=== PATIENT | male | born 1935 | race Caucasian/White ===

== ENCOUNTER 2019-02-21 11:27 | Inpatient (IN) | payer MEDICARE ==
[2019-02-21] MEDS ORDERED: FAMOTIDINE 20 MG/2 ML VIAL IV STA (11:56)
[2019-02-21] MEDS ORDERED: SODIUM CHLORIDE 0.9% 1,000 ML IV STA (11:56)
[2019-02-21] MEDS ORDERED: SODIUM CHLORIDE 0.9% 500 ML 500 ML IV STA (11:56)
--- NOTE | 2019-02-21 12:07 | ED ---
General Adult HPI - General Chief complaint: Fall Stated complaint: GI Bleed Time Seen by Provider: 02/21/19 11:27 Source: patient, EMS, RN notes reviewed, old records reviewed Mode of arrival: EMS Limitations: no limitations - History of Present Illness Initial comments: this 83-year-old male history of iron deficiency anemia who uses a walker at home he states he was trying to the bathroom when he felt very weak and went down. He denies any injury but felt very weak in had to crawl on the floor. He's been having black colored stools for past 3 days he did have some bright red blood he vomited up he is not sure when exactly he was brought in by EMS. He did have a large amount of black stool. He's not sure if he is on iron right now. He denies any Pepto-BismolHe was noted be very pale per paramedics. He was still having black stool oozing out in route to. He denies any overt abdominal pain he states he has some discomfort last night he did take medication for he does state taking Motrin again but only one or 2 per day for the past week or so. He denies any prior history of GI bleeding. he does say he's had decreased oral intake over last several days. No overt loss of consciousness is no palpitations. No other modifying factors at this time - Related Data Home Medications Medication Instructions Recorded Confirmed amLODIPine [Norvasc] 5 mg PO HS 06/27/15 02/21/19 Metoprolol Tartrate [Lopressor] 25 mg PO DAILY 07/14/15 02/21/19 Ibuprofen [Motrin Ib] 800 mg PO Q6H PRN 02/21/19 02/21/19 Lisinopril [Zestril] 10 mg PO DAILY 02/21/19 02/21/19 Allergies Allergy/AdvReac Type Severity Reaction Status Date / Time cephalexin monohydrate Allergy Anaphylaxis Verified 02/21/19 12:33 [From [employer]] Review of Systems ROS Statement: Those systems with pertinent positive or pertinent negative responses have been documented in the HPI. ROS Other: All systems not noted in ROS Statement are negative. Past Medical History Past Medical History: COPD, GERD/Reflux, Hyperlipidemia, Hypertension, Osteoarthritis (OA), Skin Disorder Additional Past Medical History / Comment(s): HX: eczema History of Any Multi-Drug Resistant Organisms: None Reported Past Surgical History: Heart Catheterization, Joint Replacement Additional Past Surgical History / Comment(s): SX: souleymane knee and souleymane hip replacements, rt carpal tunnel, left rotator cuff, left cataract Past Anesthesia/Blood Transfusion Reactions: No Reported Reaction Past Psychological History: No Psychological Hx Reported Smoking Status: Former smoker Past Alcohol Use History: Daily Past Drug Use History: None Reported - Past Family History Mother Family Medical History: No Reported History Additional Family Medical History / Comment(s): " of old age" Father Family Medical History: COPD, Hypertension Additional Family Medical History / Comment(s): "had some problems" Sister(s) Family Medical History: Cancer General Exam - General Exam Comments Initial Comments: is a well-developed well-nourished pale appearing male who is awake alert oriented 3 who does them straight some confusion as to the events of his vomiting blood Limitations: no limitations General appearance: alert, lethargic Head exam: Present: atraumatic, normocephalic, normal inspection Eye exam: Present: other (pale conjunctiva) ENT exam: Present: mucous membranes dry Neck exam: Present: normal inspection. Absent: tenderness, meningismus, lymphadenopathy Respiratory exam: Present: normal lung sounds bilaterally. Absent: respiratory distress, wheezes, rales, rhonchi, stridor Cardiovascular Exam: Present: normal rhythm, tachycardia, normal heart sounds. Absent: systolic murmur, diastolic murmur, rubs, gallop, clicks GI/Abdominal exam: Present: soft, normal bowel sounds. Absent: distended, tenderness, guarding, rebound, rigid, bruit, pulsatile mass Rectal exam: Present: heme (+) stool, black stool Extremities exam: Present: full ROM, normal capillary refill. Absent: tenderness, pedal edema, joint swelling, calf tenderness Back exam: Present: normal inspection Neurological exam: Present: alert, oriented X3, CN II-XII intact Psychiatric exam: Present: normal affect, normal mood Skin exam: Present: warm, dry, intact, pallor. Absent: rash Course Vital Signs 02/21/19 02/21/19 02/21/19 11:29 11:50 12:20 Temperature 97.4 F L Pulse Rate 102 H 104 H 87 Respiratory 19 18 Rate Blood Pressure 108/49 90/45 88/76 O2 Sat by Pulse 100 100 100 Oximetry 02/21/19 02/21/19 02/21/19 12:30 12:50 12:58 Temperature Pulse Rate 89 85 99 Respiratory 18 Rate Blood Pressure 89/56 97/60 97/60 O2 Sat by Pulse 100 100 100 Oximetry - Reevaluation(s) Reevaluation #1: 02/21/19 13:50 patient did get some improvement with IV hydration. Packed red cells are pending at this time. Reevaluation #2: 02/21/19 13:50 I did discuss case with Dr. Ness the patient will be admitted to the intensive care unit to Dr. Feliz. GI is consulted Dr. Callaway Medical Decision Making - Medical Decision Making I did discuss findings with patient and with various physicians. Patient be admitted for evaluation and treatment of upper GI bleed with severe anemia. T his time. - Lab Data Result diagrams: 02/21/19 11:45 02/21/19 11:45 Lab Results 02/21/19 02/21/19 02/21/19 Range/Units 11:45 11:45 11:45 WBC (3.8-10.6) k/uL RBC (4.30-5.90) m/uL Hgb (13.0-17.5) gm/dL Hct (39.0-53.0) % MCV (80.0-100.0) fL MCH (25.0-35.0) pg MCHC (31.0-37.0) g/dL RDW (11.5-15.5) % Plt Count (150-450) k/uL Neutrophils % % Lymphocytes % % Monocytes % % Eosinophils % % Basophils % % Neutrophils # (1.3-7.7) k/uL Lymphocytes # (1.0-4.8) k/uL Monocytes # (0-1.0) k/uL Eosinophils # (0-0.7) k/uL Basophils # (0-0.2) k/uL Hypochromasia Poikilocytosis Anisocytosis Microcytosis PT 11.6 (9.0-12.0) sec INR 1.1 (<1.2) APTT 18.0 L (22.0-30.0) sec Sodium 140 (137-145) mmol/L Potassium 4.2 (3.5-5.1) mmol/L Chloride 111 H (98-107) mmol/L Carbon Dioxide 20 L (22-30) mmol/L Anion Gap 9 mmol/L BUN 56 H (9-20) mg/dL Creatinine 1.40 H (0.66-1.25) mg/dL Est GFR (CKD-EPI)AfAm 54 (>60 ml/min/1.73 sqM) Est GFR (CKD-EPI)NonAf 47 (>60 ml/min/1.73 sqM) Glucose 127 H (74-99) mg/dL Calcium 8.5 (8.4-10.2) mg/dL Magnesium 2.0 (1.6-2.3) mg/dL Total Bilirubin 0.3 (0.2-1.3) mg/dL AST 22 (17-59) U/L ALT 13 (4-49) U/L Alkaline Phosphatase 41 (38-126) U/L Ammonia (<30) umol/L Creatine Kinase 59 (55-170) U/L Troponin I (0.000-0.034) ng/mL Total Protein 5.0 L (6.3-8.2) g/dL Albumin 2.7 L (3.5-5.0) g/dL Lipase 167 (23-300) U/L Stool Occult Blood (Negative) Blood Type B Positive Blood Type Recheck B Pos Bld Type Recheck Status No Antibody Screen NEGATIVE Crossmatch See Detail Spec Expiration Date 02/24/2019 - 234402/21/19 02/21/19 02/21/19 Range/Units 11:45 11:45 11:45 WBC 8.5 (3.8-10.6) k/uL RBC 1.97 L (4.30-5.90) m/uL Hgb 3.8 L* (13.0-17.5) gm/dL Hct 14.0 L* (39.0-53.0) % MCV 71.0 L (80.0-100.0) fL MCH 19.3 L (25.0-35.0) pg MCHC 27.2 L (31.0-37.0) g/dL RDW 20.1 H (11.5-15.5) % Plt Count 308 (150-450) k/uL Neutrophils % 84 % Lymphocytes % 8 % Monocytes % 6 % Eosinophils % 0 % Basophils % 0 % Neutrophils # 7.1 (1.3-7.7) k/uL Lymphocytes # 0.7 L (1.0-4.8) k/uL Monocytes # 0.5 (0-1.0) k/uL Eosinophils # 0.0 (0-0.7) k/uL Basophils # 0.0 (0-0.2) k/uL Hypochromasia Marked Poikilocytosis Slight Anisocytosis Moderate Microcytosis Marked PT (9.0-12.0) sec INR (<1.2) APTT (22.0-30.0) sec Sodium (137-145) mmol/L Potassium (3.5-5.1) mmol/L Chloride (98-107) mmol/L Carbon Dioxide (22-30) mmol/L Anion Gap mmol/L BUN (9-20) mg/dL Creatinine (0.66-1.25) mg/dL Est GFR (CKD-EPI)AfAm (>60 ml/min/1.73 sqM) Est GFR (CKD-EPI)NonAf (>60 ml/min/1.73 sqM) Glucose (74-99) mg/dL Calcium (8.4-10.2) mg/dL Magnesium (1.6-2.3) mg/dL Total Bilirubin (0.2-1.3) mg/dL AST (17-59) U/L ALT (4-49) U/L Alkaline Phosphatase (38-126) U/L Ammonia <9 (<30) umol/L Creatine Kinase (55-170) U/L Troponin I (0.000-0.034) ng/mL Total Protein (6.3-8.2) g/dL Albumin (3.5-5.0) g/dL Lipase (23-300) U/L Stool Occult Blood Positive (Negative) Blood Type Blood Type Recheck Bld Type Recheck Status Antibody Screen Crossmatch Spec Expiration Date 02/21/19 Range/Units 11:45 WBC (3.8-10.6) k/uL RBC (4.30-5.90) m/uL Hgb (13.0-17.5) gm/dL Hct (39.0-53.0) % MCV (80.0-100.0) fL MCH (25.0-35.0) pg MCHC (31.0-37.0) g/dL RDW (11.5-15.5) % Plt Count (150-450) k/uL Neutrophils % % Lymphocytes % % Monocytes % % Eosinophils % % Basophils % % Neutrophils # (1.3-7.7) k/uL Lymphocytes # (1.0-4.8) k/uL Monocytes # (0-1.0) k/uL Eosinophils # (0-0.7) k/uL Basophils # (0-0.2) k/uL Hypochromasia Poikilocytosis Anisocytosis Microcytosis PT (9.0-12.0) sec INR (<1.2) APTT (22.0-30.0) sec Sodium (137-145) mmol/L Potassium (3.5-5.1) mmol/L Chloride (98-107) mmol/L Carbon Dioxide (22-30) mmol/L Anion Gap mmol/L BUN (9-20) mg/dL Creatinine (0.66-1.25) mg/dL Est GFR (CKD-EPI)AfAm (>60 ml/min/1.73 sqM) Est GFR (CKD-EPI)NonAf (>60 ml/min/1.73 sqM) Glucose (74-99) mg/dL Calcium (8.4-10.2) mg/dL Magnesium (1.6-2.3) mg/dL Total Bilirubin (0.2-1.3) mg/dL AST (17-59) U/L ALT (4-49) U/L Alkaline Phosphatase (38-126) U/L Ammonia (<30) umol/L Creatine Kinase (55-170) U/L Troponin I <0.012 (0.000-0.034) ng/mL Total Protein (6.3-8.2) g/dL Albumin (3.5-5.0) g/dL Lipase (23-300) U/L Stool Occult Blood (Negative) Blood Type Blood Type Recheck Bld Type Recheck Status Antibody Screen Crossmatch Spec Expiration Date - EKG Data -: EKG Interpreted by Me (sinus rhythm PACs rate was 99. Interval 132 QRS duration 96 QT since QTC 3) - Radiology Data Radiology results: image reviewed (review the findings) Critical Care Time Critical Care Time: Yes Critical Care Time: 37 is a critical care time which includes initial presentation with history physical labs x-rays multiple reevaluation the patient discussion with EMS personnel upon arrival. Discussion with multiple physicians review of old charting. Documentation of the above Disposition Clinical Impression: Acute upper GI bleed, Anemia, Acute prerenal azotemia Disposition: ADMITTED IP TO THIS [facility] Condition: Serious Referrals: Toro Mason MD [Primary Care Provider] - 1-2 days
[2019-02-21 12:18] LABS: Anisocytosis Moderate; Basophils % (A) 0 %; Eosinophils % (A) 0 %; Hypochromasia Marked; Lymphocytes # (A) 0.7 k/uL (1.0-4.8); Lymphocytes % (A) 8 %; MCH 19.3 pg (25.0-35.0); MCHC 27.2 g/dL (31.0-37.0); Mean Platelet Volume 8.1; Microcytosis Marked; Monocytes # (A) 0.5 k/uL (0-1.0); Monocytes % (A) 6 %; Neutrophils # (A) 7.1 k/uL (1.3-7.7); Neutrophils % (A) 84 %; Platelet Count 308 k/uL (150-450); Poikilocytosis Slight; RBC 1.97 m/uL (4.30-5.90); RDW 20.1 % (11.5-15.5); WBC 8.5 k/uL (3.8-10.6)
[2019-02-21 12:21] LABS: Albumin 2.7 g/dL (3.5-5.0); Calcium 8.5 mg/dL (8.4-10.2); Potassium 4.2 mmol/L (3.5-5.1); Total Bilirubin 0.3 mg/dL (0.2-1.3)
[2019-02-21 12:27] LABS: HGB 3.8 gm/dL (13.0-17.5)
[2019-02-21 12:28] LABS: INR 1.1 (<1.2); Prothrombin Time 11.6 sec (9.0-12.0)
[2019-02-21] MEDS ORDERED: ACETAMINOPHEN TAB 325 MG TAB PO PRN (13:55)
[2019-02-21] MEDS ORDERED: NALOXONE 0.4 MG/ML 1 ML VIAL IV PRN (13:55)
--- NOTE | 2019-02-21 15:54 | XR ---
EXAMINATION TYPE: XR chest 1V portable DATE OF EXAM: 02/21/2019 CLINICAL HISTORY: Difficulty breathing and epigastric pain.. TECHNIQUE: Single AP portable upright view of the chest is obtained. COMPARISON: Chest x-ray from January 07, 2015. FINDINGS: Some chronic parenchymal changes are seen without suspicious focal airspace opacity, pleur al effusion, or pneumothorax identified bilaterally. Cardiac silhouette size is upper limits of tello l atherosclerotic thoracic aorta. Degenerative change both shoulders with advanced glenohumeral joint arthropathy noted. Overlying EKG leads are now present. IMPRESSION: Chronic parenchymal changes without acute pulmonary process
--- NOTE | 2019-02-21 15:56 | XR ---
EXAMINATION TYPE: XR KUB portable DATE OF EXAM: 02/21/2019 3:50 PM CLINICAL HISTORY: GI bleed. Epigastric pain. TECHNIQUE: Two supine KUB images of the abdomen are obtained. COMPARISON: None. FINDINGS: Scattered gas is seen in non-distended small and large bowel loops including rectal. Multil evel spurring and disc space narrowing throughout the lumbar spine. Metallic hardware from bilateral hip arthroplasty partially imaged. Protrusio acetabula on the right is present. Rounded 1.5 cm densit y over right iliac crest uncertain etiology suspect large phlebolith. IMPRESSION: Overall nonobstructive bowel gas pattern.
[2019-02-21 16:23] LABS: Glucose,Whole Blood 118 mg/dL (75-99)
--- NOTE | 2019-02-21 16:26 | P.CNPUL ---
History of Present Illness Consult date: 02/21/19 Reason for consult: other Chief complaint: symptomatic GI blood loss anemia History of present illness: this 83-year-old white male patient of Dr. Mason with past medical history of hypertension, COPD, GERD/reflux, iron deficiency anemia, osteoarthritis, who presented emergency department for evaluation of profound weakness, 3 day history of black tarry stools, and hematemesis. Over the weekend patient was not feeling good on Tuesday, he started having diarrhea which was normal at first, he thought he had the flu, however it progressively got worse, and on Tuesday he started having very dark-colored stools, yesterday he started vomiting up some orange and brown colored vomitus. patient was not eating much, he was so weak he had to crawl on the floor to get to the bathroom, he laid on the floor waiting for his caregiver who was supposed to come to fix the windows, who had alerted the EMS. He denies any previous history of GI bleeding, his last colonoscopy was in [address] Barrett, and was unremarkable. he denied any chest pain, he admits to being very dizzy, he felt gas-like discomfort in his abdomen last night, he took some Motrin which she usually takes for his chronic back pain and his chronic hip pain. Denies any loss of consciousness. emergency Department hemoglobin was 3.8, with MCV of 71, and platelet count of 308, serum sodium was 140, potassium is 4.2, chloride is 111, CO2 is 20, BUN is 66, creatinine is 1.4, troponin is negative 1, lipase was 167, stool for occult blood was positive. patient was given a 500 mL IV fluid bolus, and his IV fluids are running at 125, he has received 1 unit of packed red blood cells, and another one is pending, he was started on PPI therapy, he hasn't had any further vomiting or melena while in the emergency department, he is awake and alert, he was initially hypotensive in the emergency department with systolic in the 80s, which responded well to IV fluids and blood products. Review of Systems All systems: negative Constitutional: Reports malaise, Reports weakness, Denies chills, Denies fever Eyes: denies blurred vision, denies pain Ears, nose, mouth and throat: Denies headache, Denies sore throat Cardiovascular: Denies chest pain, Denies shortness of breath Respiratory: Denies cough Gastrointestinal: Reports coffee ground emesis, Reports melena, Denies abdominal pain, Denies diarrhea, Denies nausea, Denies vomiting Musculoskeletal: Denies myalgias Integumentary: Denies pruritus, Denies rash Neurological: Denies numbness, Denies weakness Psychiatric: Denies anxiety, Denies depression Endocrine: Denies fatigue, Denies weight change Past Medical History Past Medical History: COPD, GERD/Reflux, Hyperlipidemia, Hypertension, Osteoarthritis (OA), Skin Disorder Additional Past Medical History / Comment(s): HX: eczema History of Any Multi-Drug Resistant Organisms: None Reported Past Surgical History: Heart Catheterization, Joint Replacement Additional Past Surgical History / Comment(s): SX: souleymane knee and souleymane hip replacements, rt carpal tunnel, left rotator cuff, left cataract Past Anesthesia/Blood Transfusion Reactions: No Reported Reaction Past Psychological History: No Psychological Hx Reported Smoking Status: Former smoker Past Alcohol Use History: Daily Past Drug Use History: None Reported - Past Family History Mother Family Medical History: No Reported History Additional Family Medical History / Comment(s): " of old age" Father Family Medical History: COPD, Hypertension Additional Family Medical History / Comment(s): "had some problems" Sister(s) Family Medical History: Cancer Medications and Allergies Home Medications Medication Instructions Recorded Confirmed Type amLODIPine [Norvasc] 5 mg PO HS 06/27/15 02/21/19 History Metoprolol Tartrate [Lopressor] 25 mg PO DAILY 07/14/15 02/21/19 History Ibuprofen [Motrin Ib] 800 mg PO Q6H PRN 02/21/19 02/21/19 History Lisinopril [Zestril] 10 mg PO DAILY 02/21/19 02/21/19 History Allergies Allergy/AdvReac Type Severity Reaction Status Date / Time cephalexin monohydrate Allergy Anaphylaxis Verified 02/21/19 12:33 [From Kef[employer]] Physical Exam Vitals: Vital Signs Temp Pulse Resp BP Pulse Ox 02/21/19 14:38 98.0 F 105 H 16 102/55 100 02/21/19 14:27 98.5 F 96 16 102/50 100 02/21/19 12:58 99 18 97/60 100 02/21/19 12:50 85 97/60 100 02/21/19 12:30 89 89/56 100 02/21/19 12:20 87 88/76 100 02/21/19 11:50 104 H 18 90/45 100 02/21/19 11:29 97.4 F L 102 H 19 108/49 100 Intake and Output 02/20/19 02/21/19 02/21/19 22:59 06:59 14:59 Other: Weight 86.183 kg GENERAL EXAM: Alert, very pale-looking 83-year-old white male, awake and alert, oriented 3, on today's of oxygen with a pulse of 700%, comfortable in no apparent distress. HEAD: Normocephalic/atraumatic. EYES: Normal reaction of pupils, equal size. Conjunctiva pink, sclera white. NOSE: Clear with pink turbinates. THROAT: No erythema or exudates. NECK: No masses, no JVD, no thyroid enlargement, no adenopathy. CHEST: No chest wall deformity. Symmetrical expansion. LUNGS: Equal air entry with no crackles, wheeze, rhonchi or dullness. CVS: Regular rate and rhythm, normal S1 and S2, no gallops, no murmurs, no rubs ABDOMEN: Soft, nontender. No hepatosplenomegaly, normal bowel sounds, no guard ing or rigidity. EXTREMITIES: No clubbing, no edema, no cyanosis, 2+ pulses and upper and lower extremities. MUSCULOSKELETAL: Muscle strength and tone normal. distal interphalangeal joints on both hands are enlarged SPINE: No scoliosis or deformity SKIN: No rashes CENTRAL NERVOUS SYSTEM: Alert and oriented -3. No focal deficits, tone is normal in all 4 extremities. PSYCHIATRIC: Alert and oriented -3. Appropriate affect. Intact judgment and insight. Results - Laboratory Findings CBC and BMP: 02/21/19 11:45 02/21/19 11:45 PT/INR, D-dimer PT 11.6 sec (9.0-12.0) 02/21/19 11:45 INR 1.1 (<1.2) 02/21/19 11:45 Abnormal lab findings: Abnormal Labs 02/21/19 02/21/19 02/21/19 11:45 11:45 11:45 RBC Hgb Hct MCV MCH MCHC RDW Lymphocytes # APTT 18.0 L Chloride 111 H Carbon Dioxide 20 L BUN 56 H Creatinine 1.40 H Glucose 127 H Total Protein 5.0 L Albumin 2.7 L Crossmatch See Detail 02/21/19 11:45 RBC 1.97 L Hgb 3.8 L* Hct 14.0 L* MCV 71.0 L MCH 19.3 L MCHC 27.2 L RDW 20.1 H Lymphocytes # 0.7 L APTT Chloride Carbon Dioxide BUN Creatinine Glucose Total Protein Albumin Crossmatch - Diagnostic Findings Chest x-ray: report reviewed, image reviewed Assessment and Plan Plan: Assessment: #1. Acute symptomatic GI blood loss anemia, patient presented with hematemesis, and dark tarry stools. admission hemoglobin is 3.8 #2. History of iron deficiency anemia #3. Acute kidney injury related to hypovolemic state #4. Mild non-anion gap metabolic acidosis related to GABRIEL #5. History of hypertension #6. Hyperlipidemia #7. Osteoarthritis #8. GERD/reflux #9. History of COPD, Not oxygen dependent, not on any inhalers #10. Former smoker, carries about 15 years of smoking, cigarettes and cigars Plan: Continue IV fluids at 125 ML per hour, patient is awaiting to be transfused with 2 units of packed red blood cells, continue PPI therapy, continue close hemodynamic monitoring, we will hold lisinopril, Motrin and amlodipine right now, may start metoprolol once patient is hemodynamically stable, fluid resuscitated and transfused with blood. Continue serial H&H's, patient is nothing by mouth after midnight, for EGD tomorrow by Dr. Vang. patient will remain in the intensive care unit for close hemodynamic monitoring, I performed a history & physical examination of the patient and discussed their management with my nurse practitioner, Samantha Myers. I reviewed the nurse practitioner's note and agree with the documented findings and plan of care. Lung sounds are positive for clear breath sounds, diminished at the bases. The findings and the impression was discussed with the patient. I attest to the documentation by the nurse practitioner. Time with Patient: Greater than 30
[2019-02-21] MEDS ORDERED: METOPROLOL TARTRATE 25 MG TAB PO SCH (16:45)
[2019-02-21] MEDS: PANTOPRAZOLE 40 MG/10 ML VIAL IV SCH (20:02)
[2019-02-21 21:22] LABS: Anisocytosis Slight; Hypochromasia Marked; MCH 23.7 pg (25.0-35.0); MCHC 30.4 g/dL (31.0-37.0); Mean Platelet Volume 8.8; Microcytosis Slight; Platelet Count 185 k/uL (150-450); Poikilocytosis Marked; RBC 2.07 m/uL (4.30-5.90)
--- NOTE | 2019-02-21 21:50 | P.HPIM ---
History of Present Illness H&P Date: 02/21/19 Chief Complaint: Xavi stools History of presenting complaint: This is a very pleasant 83-year-old patient of Dr. Toro Mason. Chronic stable medical conditions include COPD, GERD, hyperlipidemia, hypertension, osteoarthritis. Patient for last 4 days been having dark stools. Patient does take Motrin for his arthritis. Patient for close to a year has been having gas pains and discomfort in the epigastric area. Patient became weak and tired. To the point he had to crawl on his force. Some nausea. No fever no chills. Admission hemoglobin was 3.8. 2 units of blood was ordered. Admitted to the ICU. GI was consulted. Planning for a endoscopy tomorrow. No prior endoscopy. Review of systems: GEN.: Weak and tired EYES: None HEENT: Decreased hearing NECK: None RESPIRATORY: None CARDIOVASCULAR: None GASTROINTESTINAL: As above] GENITOURINARY: None MUSCULOSKELETAL: [Joint pains LYMPHATICS: None HEMATOLOGICAL: None PSYCHIATRY: None NEUROLOGICAL: None Past medical history to include: COPD, GERD, hyperlipidemia, hypertension, Blair arthritis, eczema Social history: Patient is but lives alone. is at the [facility]. Patient smoked from 1958 through 2010. He has couple of drinks at night. Retired. Physical examination: VITAL SIGNS: 97.4, 1 or 2, 19, [id number] 49, 100% room air GENERAL: BMI 26.7, laying in bed tired. EYES: Pupils equal. Conjunctiva palel. HEENT: External appearance of nose and ears normal, oral cavity grossly normal decreased hearing. NECK: JVD not raised; masses not palpable. HEART: First and second heart sounds are normal; no edema. LUNGS: Respiratory rate normal; clear to auscultation. ABDOMEN: Soft, mild epigastric tenderness, no guarding or rigidity, liver spleen not palpable, no masses palpable. PSYCH: Alert and oriented x3; mood and affect normal. NEUROLOGICAL: Cranial nerves grossly intact; no facial asymmetry, power and sensation grossly intact. LYMPHATICS: No lymph nodes palpable in the axilla and neck MUSCULOSKELETAL: Evidence of OA in the hands INVESTIGATIONS, reviewed in the clinical context: White count 8.5 hemoglobin 3.8. This resulted 8 potassium 4.2 bun 56 creatinine 1.40. No recent lab work in the system. Assessment: -Acute severe GI bleed in a patient who does take Motrin, likely gastric in origin -Severe acute blood loss anemia from GI bleed, tear a bladder been ordered -COPD in a current smoker -GERD -Hyperlipidemia -Essential hypertension -Primary osteoarthritis Plan: -Patient admitted to the ICU. 2 units of blood was ordered. Repeat blood work is pending. Depending on the hemodynamics and hemoglobin will blood were transfused. Home medications resumed. Patient will be having a EGD tomorrow. Care was discussed with the patient question were answered. 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 Care was discussed with the patient question were answered Past Medical History Past Medical History: COPD, GERD/Reflux, Hyperlipidemia, Hypertension, Osteoarthritis (OA), Skin Disorder Additional Past Medical History / Comment(s): HX: eczema History of Any Multi-Drug Resistant Organisms: None Reported Past Surgical History: Heart Catheterization, Joint Replacement Additional Past Surgical History / Comment(s): SX: souleymane knee and souleymane hip replacements, rt carpal tunnel, left rotator cuff, left cataract Past Anesthesia/Blood Transfusion Reactions: No Reported Reaction Smoking Status: Former smoker - Past Family History Mother Family Medical History: No Reported History Additional Family Medical History / Comment(s): " of old age" Father Family Medical History: COPD, Hypertension Additional Family Medical History / Comment(s): "had some problems" Sister(s) Family Medical History: Cancer Medications and Allergies Home Medications Medication Instructions Recorded Confirmed Type amLODIPine [Norvasc] 5 mg PO HS 06/27/15 02/21/19 History Metoprolol Tartrate [Lopressor] 25 mg PO DAILY 07/14/15 02/21/19 History Ibuprofen [Motrin Ib] 800 mg PO Q6H PRN 02/21/19 02/21/19 History Lisinopril [Zestril] 10 mg PO DAILY 02/21/19 02/21/19 History Allergies Allergy/AdvReac Type Severity Reaction Status Date / Time cephalexin monohydrate Allergy Anaphylaxis Verified 02/21/19 12:33 [From Keflex] Physical Exam Vitals: Vital Signs Temp Pulse Resp BP Pulse Ox 02/21/19 21:00 67 18 96/59 100 02/21/19 20:00 98.9 F 72 16 101/59 100 02/21/19 19:00 102 H 13 118/81 02/21/19 18:30 89 12 114/74 02/21/19 18:17 98.1 F 96 11 L 114/74 94 L 02/21/19 17:45 92 11 L 110/63 96 02/21/19 17:14 98.1 F 96 11 L 114/74 94 L 02/21/19 16:44 97.9 F 98 14 111/60 02/21/19 16:34 98.1 F 94 14 134/62 92 L 02/21/19 16:30 98.1 F 94 12 111/63 94 L 02/21/19 16:00 97 105/49 100 02/21/19 15:51 98.1 F 90 18 112/72 100 02/21/19 15:40 98.3 F 88 14 100/60 100 02/21/19 15:00 98.1 F 80 18 110/54 100 02/21/19 14:38 98.0 F 105 H 16 102/55 100 02/21/19 14:27 98.5 F 96 16 102/50 100 02/21/19 12:58 99 18 97/60 100 02/21/19 12:50 85 97/60 100 02/21/19 12:30 89 89/56 100 02/21/19 12:20 87 88/76 100 02/21/19 11:50 104 H 18 90/45 100 02/21/19 11:29 97.4 F L 102 H 19 108/49 100 Intake and Output 02/21/19 02/21/19 02/21/19 06:59 14:59 22:59 Intake Total 1370 Output Total 800 Balance 570 Intake: IV 750 Sodium Chloride 0.9% 1, 750 000 ml @ 125 mls/hr IV . Q8H STA Rx#:[id number] Blood Product 620 Rc As-1 Unit 310 [id number] Output: Urine 800 Other: Weight 86.183 kg 84.3 kg Results CBC & Chem 7: 02/21/19 11:45 02/21/19 11:45 Labs: Abnormal Lab Results - Last 24 Hours (Table) 02/21/19 02/21/19 02/21/19 Range/Units 11:45 11:45 11:45 RBC (4.30-5.90) m/uL Hgb (13.0-17.5) gm/dL Hct (39.0-53.0) % MCV (80.0-100.0) fL MCH (25.0-35.0) pg MCHC (31.0-37.0) g/dL RDW (11.5-15.5) % Lymphocytes # (1.0-4.8) k/uL APTT 18.0 L (22.0-30.0) sec Chloride 111 H (98-107) mmol/L Carbon Dioxide 20 L (22-30) mmol/L BUN 56 H (9-20) mg/dL Creatinine 1.40 H (0.66-1.25) mg/dL Glucose 127 H (74-99) mg/dL POC Glucose (mg/dL) (75-99) mg/dL Total Protein 5.0 L (6.3-8.2) g/dL Albumin 2.7 L (3.5-5.0) g/dL Crossmatch See Detail 02/21/19 02/21/19 Range/Units 11:45 16:20 RBC 1.97 L (4.30-5.90) m/uL Hgb 3.8 L* (13.0-17.5) gm/dL Hct 14.0 L* (39.0-53.0) % MCV 71.0 L (80.0-100.0) fL MCH 19.3 L (25.0-35.0) pg MCHC 27.2 L (31.0-37.0) g/dL RDW 20.1 H (11.5-15.5) % Lymphocytes # 0.7 L (1.0-4.8) k/uL APTT (22.0-30.0) sec Chloride (98-107) mmol/L Carbon Dioxide (22-30) mmol/L BUN (9-20) mg/dL Creatinine (0.66-1.25) mg/dL Glucose (74-99) mg/dL POC Glucose (mg/dL) 118 H (75-99) mg/dL Total Protein (6.3-8.2) g/dL Albumin (3.5-5.0) g/dL Crossmatch Thrombosis Risk Factor Assmnt - Choose All That Apply Any of the Below Risk Factors Present?: Yes Each Factor Represents 1 point: Medical pt on bed rest Each Risk Factor Represents 3 Points: Age 75 years or older Thrombosis Risk Factor Assessment Total Risk Factor Score: 4 Thrombosis Risk Factor Assessment Level: Moderate Risk
[2019-02-21 21:52] LABS: HGB 4.9 gm/dL (13.0-17.5)
[2019-02-21 21:53] LABS: HCT 16.2 % (39.0-53.0); MCV 78.1 fL (80.0-100.0)
[2019-02-21 22:10] LABS: Lymphocytes # (M) 1.05 k/uL (1.0-4.8); Monocytes # (M) 0.25 k/uL (0-1.0); Neutrophils % (M) 79 %; Nucleated Red Blood Cells 1 /100 WBC (0-0); Total Cells Counted 200; WBC 6.2 k/uL (3.8-10.6)
[2019-02-22 05:29] LABS: Anisocytosis Slight; HCT 22.6 % (39.0-53.0); Hypochromasia Marked; MCH 25.7 pg (25.0-35.0); MCHC 32.2 g/dL (31.0-37.0); Mean Platelet Volume 9.3; Microcytosis Slight; Platelet Count 166 k/uL (150-450); Poikilocytosis Marked; RBC 2.83 m/uL (4.30-5.90); RDW 17.8 % (11.5-15.5); WBC 5.6 k/uL (3.8-10.6)
[2019-02-22 05:36] LABS: HGB 7.3 gm/dL (13.0-17.5)
[2019-02-22 05:44] LABS: Calcium 7.6 mg/dL (8.4-10.2); Potassium 4.1 mmol/L (3.5-5.1)
[2019-02-22 05:56] LABS: Monocytes # (M) 0.45 k/uL (0-1.0); Neutrophils # (M) 4.26 k/uL (1.3-7.7); Neutrophils % (M) 76 %; Nucleated Red Blood Cells 0 /100 WBC (0-0); Total Cells Counted 100
[2019-02-22 05:57] LABS: Large Platelets Present; Polychromasia Present
--- NOTE | 2019-02-22 06:56 | P.CONS ---
History of Present Illness - Reason for Consult Consult date: 02/21/19 GI bleed Requesting physician: Fabián Feliz - Chief Complaint weakness, GI related - History of Present Illness 83-year-old male with a medical history significant for osteoarthritis, iron deficiency anemia, GERD, COPD and hypertension who presented to the hospital for evaluation of weakness with associated dark stool and dark emesis. The patient reports having dark colored bowel movements over the past 3-4 days. He reports that this was different than baseline. He also reports 2 episodes of dark colored emesis. Overall the patient has been feeling increasingly weak over the past few days prior to presentation to the hospital. He denied any associated abdominal pain. He denied any gross bleeding per rectum or in the emesis. No prior history of colonoscopy or EGD reported. Upon presentation to the hospital the patient was found to have a hemoglobin of 3.8 and was subsequently transfused 2 units of packed red blood cells. The patient reports taking Motrin 800 mg twice daily. He reports that he takes this for aches and pains. The patient was subsequently transferred to the ICU where he is seen resting comfortably in bed. Review of Systems REVIEW OF SYSTEMS: CONSTITUTIONAL: Denies any fevers, chills, weight change but does report fatigue and weakness. CARDIOVASCULAR: Denies any chest pain, palpitations high or low blood pressures RESPIRATORY: Denies any shortness of breath, hemoptysis or cough. GENITOURINARY: No dysuria or hematuria. MUSCULOSKELETAL: No focal weakness reported. SKIN: Denies any new rashes or lesions, jaundice or pallor. PSYCHIATRIC: Denies any depression or anxiety. NEUROLOGY: Denies headache, denies any new focal deficits. EARS/NOSE/THROAT: No recent hearing change, congestion, nasal discharge or sore throat. EYES: No pain in eyes, discharge or change in vision. GASTROINTESTINAL: As per HPI. Past Medical History Past Medical History: COPD, GERD/Reflux, Hyperlipidemia, Hypertension, Osteoarthritis (OA), Skin Disorder Additional Past Medical History / Comment(s): HX: eczema History of Any Multi-Drug Resistant Organisms: None Reported Past Surgical History: Heart Catheterization, Joint Replacement Additional Past Surgical History / Comment(s): SX: souleymane knee and souleymane hip replacements, rt carpal tunnel, left rotator cuff, left cataract Past Anesthesia/Blood Transfusion Reactions: No Reported Reaction Past Psychological History: No Psychological Hx Reported Smoking Status: Former smoker Past Alcohol Use History: Daily Past Drug Use History: None Reported - Past Family History Mother Family Medical History: No Reported History Additional Family Medical History / Comment(s): " of old age" Father Family Medical History: COPD, Hypertension Additional Family Medical History / Comment(s): "had some problems" Sister(s) Family Medical History: Cancer Medications and Allergies Home Medications Medication Instructions Recorded Confirmed Type amLODIPine [Norvasc] 5 mg PO HS 06/27/15 02/21/19 History Metoprolol Tartrate [Lopressor] 25 mg PO DAILY 07/14/15 02/21/19 History Ibuprofen [Motrin Ib] 800 mg PO Q6H PRN 02/21/19 02/21/19 History Lisinopril [Zestril] 10 mg PO DAILY 02/21/19 02/21/19 History Allergies Allergy/AdvReac Type Severity Reaction Status Date / Time cephalexin monohydrate Allergy Anaphylaxis Verified 02/21/19 12:33 [From Keflex] Physical Exam Vitals: Vital Signs Temp Pulse Resp BP Pulse Ox 02/21/19 15:51 98.1 F 90 18 112/72 100 02/21/19 15:40 98.3 F 88 14 100/60 100 02/21/19 15:00 98.1 F 80 18 110/54 100 02/21/19 14:38 98.0 F 105 H 16 102/55 100 02/21/19 14:27 98.5 F 96 16 102/50 100 02/21/19 12:58 99 18 97/60 100 02/21/19 12:50 85 97/60 100 02/21/19 12:30 89 89/56 100 02/21/19 12:20 87 88/76 100 02/21/19 11:50 104 H 18 90/45 100 02/21/19 11:29 97.4 F L 102 H 19 108/49 100 Intake and Output 02/21/19 02/21/19 02/21/19 06:59 14:59 22:59 Other: Weight 86.183 kg On physical examination, patient appears comfortable in no apparent distress. HEAD: Normocephalic, atraumatic. EYES: No scleral icterus. No conjunctival injection. MOUTH: No lesions, tongue midline. NECK: Trachea midline, no gross abnormalities. CHEST: Clear to auscultation with no wheezing or rhonchi appreciated. HEART: S1-S2 appreciated. ABDOMEN: Soft, non-tender to palpation. Bowel sounds are positive. No organomegaly. No guarding or rigidity. EXTREMITIES: No pedal edema. SKIN: No rashes, no jaundice. NEUROLOGIC: Alert and oriented x3. Results CBC & Chem 7: 02/22/19 05:04 02/22/19 05:04 Labs: Abnormal Lab Results - Last 24 Hours (Table) 02/21/19 02/21/19 02/21/19 Range/Units 11:45 11:45 11:45 RBC (4.30-5.90) m/uL Hgb (13.0-17.5) gm/dL Hct (39.0-53.0) % MCV (80.0-100.0) fL MCH (25.0-35.0) pg MCHC (31.0-37.0) g/dL RDW (11.5-15.5) % Lymphocytes # (1.0-4.8) k/uL APTT 18.0 L (22.0-30.0) sec Chloride 111 H (98-107) mmol/L Carbon Dioxide 20 L (22-30) mmol/L BUN 56 H (9-20) mg/dL Creatinine 1.40 H (0.66-1.25) mg/dL Glucose 127 H (74-99) mg/dL Total Protein 5.0 L (6.3-8.2) g/dL Albumin 2.7 L (3.5-5.0) g/dL Crossmatch See Detail 02/21/19 Range/Units 11:45 RBC 1.97 L (4.30-5.90) m/uL Hgb 3.8 L* (13.0-17.5) gm/dL Hct 14.0 L* (39.0-53.0) % MCV 71.0 L (80.0-100.0) fL MCH 19.3 L (25.0-35.0) pg MCHC 27.2 L (31.0-37.0) g/dL RDW 20.1 H (11.5-15.5) % Lymphocytes # 0.7 L (1.0-4.8) k/uL APTT (22.0-30.0) sec Chloride (98-107) mmol/L Carbon Dioxide (22-30) mmol/L BUN (9-20) mg/dL Creatinine (0.66-1.25) mg/dL Glucose (74-99) mg/dL Total Protein (6.3-8.2) g/dL Albumin (3.5-5.0) g/dL Crossmatch Abdominal x-ray: report reviewed (nonobstructive bowel gas pattern on abdominal x-ray) Assessment and Plan (1) Acute upper GI bleed Narrative/Plan: 83-year-old male with multiple medical comorbidities who presented to the hospital with complaints of melena, coffee-ground emesis and was found to have anemia of acute blood loss. The patient denies prior history of GI bleeding or abdominal pain. He was taking NSAID medications reporting Motrin 800 twice daily. No prior EGD or colonoscopy reported. Suspicion is for upper GI bleed with etiology likely peptic ulcer disease, and differential including esophagitis, gastritis, AVM, or other etiology. Current Visit: Yes Status: Acute Code(s): K92.2 - GASTROINTESTINAL HEMORRHAGE, UNSPECIFIED SNOMED Code(s): 87739405 (2) Anemia associated with acute blood loss Current Visit: Yes Status: Acute Code(s): D62 - ACUTE POSTHEMORRHAGIC ANEMIA SNOMED Code(s): 751123809 Plan: supportive care Nothing by mouth, okay for ice chips Continue Protonix 40 mg IV twice daily Continue to monitor hemoglobin and hematocrit and transfuse as needed Avoid NSAID use Continue to monitor stool output Continue ICU care Plan for EGD tomorrow for further evaluation of Thank you for allowing us to participate in the care of the patient we will continue to follow
[2019-02-22] MEDS: PANTOPRAZOLE 40 MG/10 ML VIAL IV SCH ×2 (08:18→19:56)
--- NOTE | 2019-02-22 09:40 | P.PN ---
Subjective Progress Note Date: 02/22/19 Principal diagnosis: Symptomatic GI blood loss anemia this 83-year-old white male patient of Dr. Mason with past medical history of hypertension, COPD, GERD/reflux, iron deficiency anemia, osteoarthritis, who presented emergency department for evaluation of profound weakness, 3 day history of black tarry stools, and hematemesis. Over the weekend patient was not feeling good on Tuesday, he started having diarrhea which was normal at first, he thought he had the flu, however it progressively got worse, and on Tuesday he started having very dark-colored stools, yesterday he started vomiting up some orange and brown colored vomitus. patient was not eating much, he was so weak he had to crawl on the floor to get to the bathroom, he laid on the floor waiting for his caregiver who was supposed to come to fix the windows, who had alerted the EMS. He denies any previous history of GI bleeding, his last colonoscopy was in [address] Barrett, and was unremarkable. he denied any chest pain, he admits to being very dizzy, he felt gas-like discomfort in his abdomen last night, he took some Motrin which she usually takes for his chronic back pain and his chronic hip pain. Denies any loss of consciousness. emergency Department hemoglobin was 3.8, with MCV of 71, and platelet count of 308, serum sodium was 140, potassium is 4.2, chloride is 111, CO2 is 20, BUN is 66, creatinine is 1.4, troponin is negative 1, lipase was 167, stool for occult blood was positive. patient was given a 500 mL IV fluid bolus, and his IV fluids are running at 125, he has received 1 unit of packed red blood cells, and another one is pending, he was started on PPI therapy, he hasn't had any further vomiting or melena while in the emergency department, he is awake and alert, he was initially hypotensive in the emergency department with systolic in the 80s, which responded well to IV fluids and blood products. On 02/22/2019 patient seen in follow-up in the intensive care unit, no further bleeding overnight, no hematemesis, no melena, blood pressure is stable, 93/61, no tachycardia, patient has received 3 units of packed red blood cells so far, hemoglobin is 7.3 this morning, hemodynamically stable, nothing by mouth after midnight, remains on PPI therapy, he was evaluated by GI service, and his EGD is scheduled for 2 PM this afternoon. Objective - Vital Signs Vital signs: Vital Signs Temp 98.2 F 02/22/19 04:00 Pulse 70 02/22/19 07:00 Resp 16 02/22/19 07:00 BP 93/61 02/22/19 07:00 Pulse Ox 98 02/22/19 07:00 Intake & Output 02/21/19 02/22/19 02/22/19 18:59 06:59 18:59 Intake Total 995 2615 Output Total 400 1200 Balance 595 1415 Weight 84.3 kg 83.9 kg Intake: IV 375 1375 Sodium Chloride 0.9% 1, 375 1375 000 ml @ 125 mls/hr IV . Q8H STA Rx#:[id number] Blood Product 620 1240 Rc As-1 Unit 310 [id number] Rc As-1 Unit 310 [id number] Rc Pheresis 2 As3 Unit 310 [id number] Output: Urine 400 1200 - Exam GENERAL EXAM: Alert, very pale-looking 83-year-old white male, awake and alert, oriented 3, on today's of oxygen with a pulse of 700%, comfortable in no apparent distress. HEAD: Normocephalic/atraumatic. EYES: Normal reaction of pupils, equal size. Conjunctiva pink, sclera white. NOSE: Clear with pink turbinates. THROAT: No erythema or exudates. NECK: No masses, no JVD, no thyroid enlargement, no adenopathy. CHEST: No chest wall deformity. Symmetrical expansion. LUNGS: Equal air entry with no crackles, wheeze, rhonchi or dullness. CVS: Regular rate and rhythm, normal S1 and S2, no gallops, no murmurs, no rubs ABDOMEN: Soft, nontender. No hepatosplenomegaly, normal bowel sounds, no guarding or rigidity. EXTREMITIES: No clubbing, no edema, no cyanosis, 2+ pulses and upper and lower extremities. MUSCULOSKELETAL: Muscle strength and tone normal. distal interphalangeal joints on both hands are enlarged SPINE: No scoliosis or deformity SKIN: No rashes CENTRAL NERVOUS SYSTEM: Alert and oriented -3. No focal deficits, tone is normal in all 4 extremities. PSYCHIATRIC: Alert and oriented -3. Appropriate affect. Intact judgment and insight. - Labs CBC & Chem 7: 02/22/19 05:04 02/22/19 05:04 Labs: Abnormal Lab Results - Last 24 Hours (Table) 02/21/19 02/21/19 02/21/19 Range/Units 11:45 11:45 11:45 RBC (4.30-5.90) m/uL Hgb (13.0-17.5) gm/dL Hct (39.0-53.0) % MCV (80.0-100.0) fL MCH (25.0-35.0) pg MCHC (31.0-37.0) g/dL RDW (11.5-15.5) % Lymphocytes # (1.0-4.8) k/uL Lymphocytes # (Manual) (1.0-4.8) k/uL Nucleated RBCs (0-0) /100 WBC APTT 18.0 L (22.0-30.0) sec Chloride 111 H (98-107) mmol/L Carbon Dioxide 20 L (22-30) mmol/L BUN 56 H (9-20) mg/dL Creatinine 1.40 H (0.66-1.25) mg/dL Glucose 127 H (74-99) mg/dL POC Glucose (mg/dL) (75-99) mg/dL Calcium (8.4-10.2) mg/dL Total Protein 5.0 L (6.3-8.2) g/dL Albumin 2.7 L (3.5-5.0) g/dL Crossmatch See Detail 02/21/19 02/21/19 02/21/19 Range/Units 11:45 16:20 21:04 RBC 1.97 L 2.07 L (4.30-5.90) m/uL Hgb 3.8 L* 4.9 L* (13.0-17.5) gm/dL Hct 14.0 L* 16.2 L* (39.0-53.0) % MCV 71.0 L 78.1 L D (80.0-100.0) fL MCH 19.3 L 23.7 L (25.0-35.0) pg MCHC 27.2 L 30.4 L (31.0-37.0) g/dL RDW 20.1 H 18.0 H (11.5-15.5) % Lymphocytes # 0.7 L (1.0-4.8) k/uL Lymphocytes # (Manual) (1.0-4.8) k/uL Nucleated RBCs 1 H (0-0) /100 WBC APTT (22.0-30.0) sec Chloride (98-107) mmol/L Carbon Dioxide (22-30) mmol/L BUN (9-20) mg/dL Creatinine (0.66-1.25) mg/dL Glucose (74-99) mg/dL POC Glucose (mg/dL) 118 H (75-99) mg/dL Calcium (8.4-10.2) mg/dL Total Protein (6.3-8.2) g/dL Albumin (3.5-5.0) g/dL Crossmatch 02/22/19 02/22/19 Range/Units 05:04 05:04 RBC 2.83 L (4.30-5.90) m/uL Hgb 7.3 L D (13.0-17.5) gm/dL Hct 22.6 L (39.0-53.0) % MCV (80.0-100.0) fL MCH (25.0-35.0) pg MCHC (31.0-37.0) g/dL RDW 17.8 H (11.5-15.5) % Lymphocytes # (1.0-4.8) k/uL Lymphocytes # (Manual) 0.90 L (1.0-4.8) k/uL Nucleated RBCs (0-0) /100 WBC APTT (22.0-30.0) sec Chloride 116 H (98-107) mmol/L Carbon Dioxide (22-30) mmol/L BUN 58 H (9-20) mg/dL Creatinine (0.66-1.25) mg/dL Glucose (74-99) mg/dL POC Glucose (mg/dL) (75-99) mg/dL Calcium 7.6 L (8.4-10.2) mg/dL Total Protein (6.3-8.2) g/dL Albumin (3.5-5.0) g/dL Crossmatch Assessment and Plan Plan: Assessment: #1. Acute symptomatic GI blood loss anemia, patient presented with hematemesis, and dark tarry stools. admission hemoglobin is 3.8 #2. History of iron deficiency anemia #3. Acute kidney injury related to hypovolemic state #4. Mild non-anion gap metabolic acidosis related to GABRIEL #5. History of hypertension #6. Hyperlipidemia #7. Osteoarthritis #8. GERD/reflux #9. History of COPD, Not oxygen dependent, not on any inhalers #10. Former smoker, carries about 15 years of smoking, cigarettes and cigars Plan: No bleeding overnight, this morning's hemoglobin is 7.3, hemodynamically stable, continues on PPI therapy, nothing by mouth after midnight, patient is scheduled for EGD this afternoon, continue IV fluids, no complaints of shortness of breath or chest pain, no abdominal pain. We'll continue to follow I performed a history & physical examination of the patient and discussed their management with my nurse practitioner, Samantha Myers. I reviewed the nurse practitioner's note and agree with the documented findings and plan of care. Lung sounds are positive for clear breath sounds, diminished at the bases. The findings and the impression was discussed with the patient. I attest to the documentation by the nurse practitioner. Time with Patient: Less than 30
--- NOTE | 2019-02-22 11:10 | US ---
EXAMINATION TYPE: US kidneys/renal and bladder DATE OF EXAM: 02/22/2019 COMPARISON: NONE CLINICAL HISTORY: assess for ckd. EXAM MEASUREMENTS: Right Kidney: 11.2 X 6.1 X 5.5 cm Left Kidney: 12.3 X 5.5 X 4.9 cm Post Void Residual Volume: Not assessed for this inpatient mL Right Kidney: No hydronephrosis or masses seen, multiple echogenic foci centrally. Left Kidney: Lower pole cyst = measures 1.6 x 1.4 x 1.2 cm Bladder: wnl Bilateral Jets seen: Yes Normal Post Void Residual: Not assessed. There is no evidence for hydronephrosis at this point in time. The urinary bladder is anechoic. Bila teral ureteral jets are seen. IMPRESSION: 1. No hydronephrosis of either kidney. 2. Stable punctate echogenic foci in the right that may represent small nonobstructing calculi are pr ominent renal sinus fat. 3. Benign-appearing 1.6 cm left renal cyst.
[2019-02-22] MEDS: METOPROLOL TARTRATE 12.5 MG TAB PO SCH ×2 (11:50→19:56)
[2019-02-22] MEDS ORDERED: PROPOFOL 10 MG/ML 20 ML VIAL IV ONE (13:51)
[2019-02-22] MEDS ORDERED: IV FLUID CONTINUATION 1,000 ML IV ONE (13:54)
--- NOTE | 2019-02-22 14:21 | P.PCN ---
Date of Procedure: 02/22/19 Description of Procedure: BRIEF HISTORY: 83-year-old male with a medical history significant for osteoarthritis, iron deficiency anemia, GERD, COPD and hypertension who presented to the hospital for evaluation of weakness with associated dark stool and dark emesis. The patient reports having dark colored bowel movements over the past 3-4 days. He reports that this was different than baseline. He also reports 2 episodes of dark colored emesis. Overall the patient has been feeling increasingly weak over the past few days prior to presentation to the hospital. He denied any associated abdominal pain. He denied any gross bleeding per rectum or in the emesis. No prior history of colonoscopy or EGD reported. Upon presentation to the hospital the patient was found to have a hemoglobin of 3.8 and was subsequently transfused 2 units of packed red blood cells. The patient reports taking Motrin 800 mg twice daily. PROCEDURE PERFORMED: Esophagogastroduodenoscopy with biopsy. PREOPERATIVE DIAGNOSIS: Anemia of acute blood loss, coffee-ground emesis, melena. ESTIMATED BLOOD LOSS: Minimal. IV sedation per anesthesia. PROCEDURE: After informed consent was obtained, the patient was brought into the endoscopy unit. IV sedation was administered by Anesthesia under continuous monitoring. Initially the Olympus GIF-190 video endoscope was inserted into the mouth. Esophagus intubated without any difficulty. It was gradually advanced into the stomach and duodenum and carefully examined. The second part of the duodenum appeared normal, however in the duodenal bulb there was a large 1.5 cm cratered ulcer without high-risk stigmata for bleeding with biopsies of the ulcer edge taken. The scope at this time was withdrawn to the stomach, adequately insufflated with air, and upon careful examination, mucosa of the antrum, body, cardia and the fundus appeared normal, with biopsies of the antrum and body taken. The scope was then withdrawn into the esophagus. The GE junction was located at 39 cm from the incisors, with a small hiatal hernia noted. The esophagus was significant for LA grade C esophagitis in the distal esophagus. Otherwise the esophagus appeared normal. The patient tolerated the procedure well. IMPRESSION: 1. Large cratered duodenal ulcer without high-risk stigmata for bleeding, with biopsies of the ulcer edge taken. 2. Biopsies of the antrum and body. 3. LA grade C esophagitis in the distal esophagus. RECOMMENDATIONS: The findings of this examination were discussed with the patient. Okay for clear liquid diet. Continue to monitor hemoglobin and hematocrit and transfuse as needed. Continue IV Protonix twice daily. Will add Carafate4 times a day. Avoid NSAID use. Further signs or symptoms of bleeding consider surgical consultation.
[2019-02-23 07:21] LABS: Glucose,Whole Blood 79 mg/dL (75-99)
[2019-02-23] MEDS: PANTOPRAZOLE 40 MG/10 ML VIAL IV SCH (08:38)
[2019-02-23] MEDS: METOPROLOL TARTRATE 12.5 MG TAB PO SCH ×2 (08:38→23:29)
[2019-02-23 09:43] LABS: Calcium 7.6 mg/dL (8.4-10.2); Potassium 3.2 mmol/L (3.5-5.1)
[2019-02-23] MEDS ORDERED: Potassium Replacement Protocol 1 EACH MISC MISCELLANE PRN (14:01)
[2019-02-23] MEDS: POTASSIUM CHLORIDE ER 20 MEQ TAB.ER PO SCH ×2 (14:07→16:29)
[2019-02-23 15:18] LABS: Anisocytosis Slight; Basophils % (A) 1 %; Eosinophils # (A) 0.1 k/uL (0-0.7); Eosinophils % (A) 2 %; HCT 23.3 % (39.0-53.0); HGB 7.3 gm/dL (13.0-17.5); Hypochromasia Marked; Lymphocytes # (A) 0.6 k/uL (1.0-4.8); Lymphocytes % (A) 12 %; MCH 25.5 pg (25.0-35.0); MCHC 31.2 g/dL (31.0-37.0); MCV 81.8 fL (80.0-100.0); Mean Platelet Volume 9.2; Microcytosis Slight; Monocytes # (A) 0.4 k/uL (0-1.0); Monocytes % (A) 8 %; Neutrophils # (A) 3.9 k/uL (1.3-7.7); Neutrophils % (A) 76 %; Platelet Count 172 k/uL (150-450); Poikilocytosis Marked; RBC 2.84 m/uL (4.30-5.90); RDW 18.3 % (11.5-15.5); WBC 5.1 k/uL (3.8-10.6)
--- NOTE | 2019-02-23 15:24 | P.PN ---
Subjective Progress Note Date: 02/23/19 this 83-year-old white male patient of Dr. Mason with past medical history of hypertension, COPD, GERD/reflux, iron deficiency anemia, osteoarthritis, who presented emergency department for evaluation of profound weakness, 3 day history of black tarry stools, and hematemesis. Over the weekend patient was not feeling good on Tuesday, he started having diarrhea which was normal at first, he thought he had the flu, however it progressively got worse, and on Tuesday he started having very dark-colored stools, yesterday he started vomiting up some orange and brown colored vomitus. patient was not eating much, he was so weak he had to crawl on the floor to get to the bathroom, he laid on the floor waiting for his caregiver who was supposed to come to fix the windows, who had alerted the EMS. He denies any previous history of GI bleeding, his last colonoscopy was in [address] Barrett, and was unremarkable. he denied any chest pain, he admits to being very dizzy, he felt gas-like discomfort in his abdomen last night, he took some Motrin which she usually takes for his chronic back pain and his chronic hip pain. Denies any loss of consciousness. emergency Department hemoglobin was 3.8, with MCV of 71, and platelet count of 308, serum sodium was 140, potassium is 4.2, chloride is 111, CO2 is 20, BUN is 66, creatinine is 1.4, troponin is negative 1, lipase was 167, stool for occult blo od was positive. patient was given a 500 mL IV fluid bolus, and his IV fluids are running at 125, he has received 1 unit of packed red blood cells, and another one is pending, he was started on PPI therapy, he hasn't had any further vomiting or melena while in the emergency department, he is awake and alert, he was initially hypotensive in the emergency department with systolic in the 80s, which responded well to IV fluids and blood products. On 02/22/2019 patient seen in follow-up in the intensive care unit, no further bleeding overnight, no hematemesis, no melena, blood pressure is stable, 93/61, no tachycardia, patient has received 3 units of packed red blood cells so far, hemoglobin is 7.3 this morning, hemodynamically stable, nothing by mouth after midnight, remains on PPI therapy, he was evaluated by GI service, and his EGD is scheduled for 2 PM this afternoon. On 02/23/2019 I'm seeing the patient for a follow-up. The patient is admitted to the ICU for GI bleed dose of an upper GI source. The patient was having dark colored bowel movements. She also had 2 episodes of dark-colored emesis. She was getting progressively more weak. She was taking Motrin. She underwent EGD yesterday and the patient was found to have a large ulcerated duodenal ulcer without risk of stigmata for bleeding with biopsies from the edge of the ulcer to being taken. Biopsies from the antrum and the body of the stomach was also taken and the patient had a LA grade C esophagitis in the distal esophagus. Patient was asked to avoid nonsteroidal anti-inflammatory medication. She was treated with a combination of Protonix and Carafate. Appearance hemoglobin is stable at 7.3. Platelet counts of 172. The rest of the blood work is all within normal limits. Objective - Vital Signs Vital signs: Vital Signs Temp 98.8 F 02/23/19 14:13 Pulse 76 02/23/19 14:13 Resp 16 02/23/19 14:13 BP 130/83 02/23/19 14:13 Pulse Ox 100 02/23/19 14:13 Intake & Output 02/22/19 02/23/19 02/23/19 18:59 06:59 18:59 Intake Total 1250 Output Total 825 350 Balance 425 -350 Intake: IV 1100 Sodium Chloride 0.9% 1, 800 000 ml @ 125 mls/hr IV . Q8H STA Rx#:[id number] Oral 150 Output: Urine 825 350 Stool 0 Other: Voiding Method Urinal Urinal # Voids 1 - Exam GENERAL EXAM: Alert, very pale-looking 83-year-old white male, awake and alert, oriented 3, on today's of oxygen with a pulse of 700%, comfortable in no apparent distress. HEAD: Normocephalic/atraumatic. EYES: Normal reaction of pupils, equal size. Conjunctiva pink, sclera white. NOSE: Clear with pink turbinates. THROAT: No erythema or exudates. NECK: No masses, no JVD, no thyroid enlargement, no adenopathy. CHEST: No chest wall deformity. Symmetrical expansion. LUNGS: Equal air entry with no crackles, wheeze, rhonchi or dullness. CVS: Regular rate and rhythm, normal S1 and S2, no gallops, no murmurs, no rubs ABDOMEN: Soft, nontender. No hepatosplenomegaly, normal bowel sounds, no guarding or rigidity. EXTREMITIES: No clubbing, no edema, no cyanosis, 2+ pulses and upper and lower extremities. MUSCULOSKELETAL: Muscle strength and tone normal. distal interphalangeal joints on both hands are enlarged SPINE: No scoliosis or deformity SKIN: No rashes CENTRAL NERVOUS SYSTEM: Alert and oriented -3. No focal deficits, tone is normal in all 4 extremities. PSYCHIATRIC: Alert and oriented -3. Appropriate affect. Intact judgment and insight. - Labs CBC & Chem 7: 02/23/19 14:40 02/23/19 08:53 Labs: Abnormal Lab Results - Last 24 Hours (Table) 02/21/19 02/23/19 02/23/19 Range/Units 11:45 08:53 14:40 RBC 2.84 L (4.30-5.90) m/uL Hgb 7.3 L (13.0-17.5) gm/dL Hct 23.3 L (39.0-53.0) % RDW 18.3 H (11.5-15.5) % Lymphocytes # 0.6 L (1.0-4.8) k/uL Potassium 3.2 L (3.5-5.1) mmol/L Chloride 113 H (98-107) mmol/L BUN 29 H (9-20) mg/dL Glucose 135 H (74-99) mg/dL Calcium 7.6 L (8.4-10.2) mg/dL Crossmatch See Detail Assessment and Plan Plan: #1. Acute symptomatic GI blood loss anemia, patient presented with hematemesis, and dark tarry stools. admission hemoglobin is 3.8the patient was transfused with packed RBC. The patient had an EGD and the patient was found to have a duodenal ulcer along with esophagitis grade 3. The patient was treated with a combination of Protonix and Carafate. She is stable for now. #2. History of iron deficiency anemia #3. Acute kidney injury related to hypovolemic state #4. Mild non-anion gap metabolic acidosis related to GABRIEL, recovered, and the creatinine is normalized #5. History of hypertension #6. Hyperlipidemia #7. Osteoarthritis #8. GERD/reflux #9. History of COPD, Not oxygen dependent, not on any inhalers #10. Former smoker, carries about 15 years of smoking, cigarettes and cigars plan Condition is stable. Hemodynamically stable. Hemoglobin stable. Advance diet slowly. Continue Protonix and Carafate. Pulmonary critical care services we'll sign off.
[2019-02-23] MEDS: SUCRALFATE 1 GM TAB PO SCH (16:30)
--- NOTE | 2019-02-23 18:07 | P.PN ---
Progress Note - Text Progress Note Date: 02/22/19 Chief Complaint: Dark stools Interval history: This is a very pleasant 83-year-old patient of Dr. Toro Mason. Chronic stable medical conditions include COPD, GERD, hyperlipidemia, hypertension, osteoarthritis. Patient for last 4 days been having dark stools. Patient does take Motrin for his arthritis. Patient for close to a year has been having gas pains and discomfort in the epigastric area. Patient became weak and tired. To the point he had to crawl on his fours.. Some nausea. No fever no chills. Admission hemoglobin was 3.8. 2 units of blood was ordered. Admitted to the ICU. GI was consulted. Patient received a total of 4 units of blood Today-laying in bed. Status post EGD. Found to have a duodenal ulcer and esophagitis. On clear liquids. No further bleeding. Feels a bit tired. Feels better than admission Review of systems: Was done for constitutional, cardiovascular, GI, pulmonary. relevant finding as above Current medications reviewed in today's electronic records Physical examination: VITAL SIGNS: 97.8, 88, 18, 126/74, 100% on room air GENERAL: Laying in bed, awake EYES: Pupils equal. Conjunctiva pale. HEENT: External appearance of nose and ears normal, oral cavity grossly normal , decreased hearing. NECK: JVD not raised; masses not palpable. HEART: First and second heart sounds are normal; no edema. LUNGS: Respiratory rate normal; clear to auscultation. ABDOMEN: Soft, mild epigastric tenderness, no guarding or rigidity, liver spleen not palpable, no masses palpable. PSYCH: Alert and oriented x3; mood and affect normal. MUSCULOSKELETAL: Evidence of OA in the hands INVESTIGATIONS, reviewed in the clinical context: Hemoglobin 7.3 bun 58 creatinine 1.24 Previous testing White count 8.5 hemoglobin 3.8. This resulted 8 potassium 4.2 bun 56 creatinine 1.40. No recent lab work in the system. Assessment: -Acute severe GI bleed in a patient who does take Motrin, likely from large duodenal ulcer -Grade C distal esophagitis -Severe acute blood loss anemia from GI bleed, 4 units of blood was transfused -COPD in a current smoker -GERD -Hyperlipidemia -Essential hypertension -Primary osteoarthritis Plan: Patient is on clear liquids. Repeat H&H in the morning. Care was discussed with the patient. Duodenal ulcer biopsies were done.
--- NOTE | 2019-02-23 18:14 | P.PN ---
Progress Note - Text Progress Note Date: 02/23/19 Chief Complaint: Tired Interval history: This is a very pleasant 83-year-old patient of Dr. Toro Mason. Chronic stable medical conditions include COPD, GERD, hyperlipidemia, hypertension, osteoarthritis. Patient for last 4 days been having dark stools. Patient does take Motrin for his arthritis. Patient for close to a year has been having gas pains and discomfort in the epigastric area. Patient became weak and tired. To the point he had to crawl on his fours.. Some nausea. No fever no chills. Admission hemoglobin was 3.8. 2 units of blood was ordered. Admitted to the ICU. GI was consulted. Patient received a total of 4 units of blood. EGD showed-large duodenal ulcer and grade C esophagitis. Today-laying in bed. On clear liquids. Feels better. Review of systems: Was done for constitutional, cardiovascular, GI, pulmonary. relevant finding as above Active Medications Acetaminophen (Tylenol Tab) 650 mg PO Q4HR PRN PRN Reason: Fever and/or Mild Pain Metoprolol Tartrate (Lopressor) 12.5 mg PO BID [facility] Last Admin: 02/23/19 08:38 Dose: 12.5 mg Documented by: Miscellaneous Information (Potassium Per Protocol) 1 each MISCELLANE DAILY PRN; Protocol PRN Reason: Per Protocol Naloxone HCl (Narcan) 0.2 mg IV Q2M PRN PRN Reason: Opioid Reversal Pantoprazole Sodium (Protonix) 40 mg IV BID [facility] Last Admin: 02/23/19 08:38 Dose: 40 mg Documented by: Sucralfate (Carafate) 1 gm PO AC-TID [facility] Last Admin: 02/23/19 16:30 Dose: 1 gm Documented by: Physical examination: VITAL SIGNS: 97.2, 86, 18, 134/61, 99% room air GENERAL: Laying in bed, awake EYES: Pupils equal. Conjunctiva pale. HEENT: External appearance of nose and ears normal, oral cavity grossly normal , decreased hearing. NECK: JVD not raised; masses not palpable. HEART: First and second heart sounds are normal; no edema. LUNGS: Respiratory rate normal; clear to auscultation. ABDOMEN: Soft, mild epigastric tenderness, no guarding or rigidity, liver spleen not palpable, no masses palpable. PSYCH: Alert and oriented x3; mood and affect normal. MUSCULOSKELETAL: Evidence of OA in the hands INVESTIGATIONS, reviewed in the clinical context: Hemoglobin 7.3 bun 29 crit 0.95 Previous testing White count 8.5 hemoglobin 3.8. This resulted 8 potassium 4.2 bun 56 creatinine 1.40. No recent lab work in the system. Assessment: -Acute severe GI bleed in a patient who does take Motrin, likely from large duodenal ulcer -Grade C distal esophagitis -Severe acute blood loss anemia from GI bleed, 4 units of blood was transfused -COPD in a current smoker -GERD -Hyperlipidemia -Essential hypertension -Primary osteoarthritis -Acute kidney injury, prerenal, from blood loss improved Plan: Patient be put on a full liquid diet if okay with GI. Repeat hemoglobin the morning. Encouraged to be out of bed. Hopefully home tomorrow if no further bleeding.
[2019-02-23] MEDS: PANTOPRAZOLE 40 MG TABLET PO SCH (23:29)
[2019-02-24 08:32] LABS: African American GFR (CKD) >90 (>60 ml/min/1.73 sqM); Anion Gap 3 mmol/L; Blood Urea Nitrogen 20 mg/dL (9-20); Calcium 7.8 mg/dL (8.4-10.2); Carbon Dioxide 25 mmol/L (22-30); Chloride 111 mmol/L (98-107); Glucose 93 mg/dL (74-99); Non-African American GFR(CKD) 80 (>60 ml/min/1.73 sqM); Potassium 4.1 mmol/L (3.5-5.1); Sodium 139 mmol/L (137-145)
[2019-02-24 09:04] LABS: Anisocytosis Slight; HCT 22.8 % (39.0-53.0); HGB 7.1 gm/dL (13.0-17.5); Hypochromasia Marked; MCH 25.5 pg (25.0-35.0); MCHC 31.1 g/dL (31.0-37.0); MCV 82.1 fL (80.0-100.0); Mean Platelet Volume 8.9; Microcytosis Slight; Platelet Count 167 k/uL (150-450); Poikilocytosis Marked; RBC 2.78 m/uL (4.30-5.90); RDW 18.9 % (11.5-15.5); WBC 4.1 k/uL (3.8-10.6)
[2019-02-24] MEDS: METOPROLOL TARTRATE 12.5 MG TAB PO SCH (09:12)
[2019-02-24] MEDS: PANTOPRAZOLE 40 MG TABLET PO SCH (09:12)
[2019-02-24] MEDS: SUCRALFATE 1 GM TAB PO SCH ×2 (09:12→12:28)
[2019-02-24 11:51] LABS: Eosinophils # (M) 0.16 k/uL (0-0.7); Lymphocytes # (M) 0.53 k/uL (1.0-4.8); Monocytes # (M) 0.25 k/uL (0-1.0); Neutrophils # (M) 3.16 k/uL (1.3-7.7); Neutrophils % (M) 77 %; Nucleated Red Blood Cells 0 /100 WBC (0-0); Total Cells Counted 100
[2019-02-24 12:15] LABS: Polychromasia Present
[2019-02-24 14:42] VITALS: BP 95/47
[2019-02-24 15:03] VITALS: PULSE 39; RESP 16; TEMP 97.5
--- NOTE | 2019-02-24 23:48 | P.PN ---
Subjective Progress Note Date: 02/24/19 Principal diagnosis: Upper GI bleed, duodenal ulcer, anemia of acute blood loss Patient seen lying in bed with no signs or symptoms of GI bleeding reported. No bowel movements reported. Tolerating diet. Objective - Vital Signs Vital signs: Vital Signs Temp 97.6 F 02/24/19 05:15 Pulse 81 02/24/19 05:15 Resp 18 02/24/19 05:15 BP 120/66 02/24/19 05:15 Pulse Ox 100 02/24/19 05:15 Intake & Output 02/23/19 02/24/19 02/24/19 18:59 06:59 18:59 Output Total 550 Balance -550 Output: Urine 550 Other: Voiding Method Urinal Urinal # Voids 1 - Exam On physical examination, patient appears comfortable in no apparent distress. HEAD: Normocephalic, atraumatic. EYES: No scleral icterus. No conjunctival injection. MOUTH: No lesions, tongue midline. NECK: Trachea midline, no gross abnormalities. ABDOMEN: Soft. Bowel sounds are positive. No organomegaly. No guarding or rigidity. EXTREMITIES: No pedal edema. SKIN: No rashes, no jaundice. NEUROLOGIC: Alert and oriented x3. No focal deficits. - Labs CBC & Chem 7: 02/24/19 07:43 02/24/19 07:43 Labs: Abnormal Lab Results - Last 24 Hours (Table) 02/23/19 02/24/19 02/24/19 Range/Units 14:40 07:43 07:43 RBC 2.84 L 2.78 L (4.30-5.90) m/uL Hgb 7.3 L 7.1 L (13.0-17.5) gm/dL Hct 23.3 L 22.8 L (39.0-53.0) % RDW 18.3 H 18.9 H (11.5-15.5) % Lymphocytes # 0.6 L (1.0-4.8) k/uL Chloride 111 H (98-107) mmol/L Calcium 7.8 L (8.4-10.2) mg/dL Assessment and Plan (1) Acute upper GI bleed Narrative/Plan: 83-year-old male with multiple medical comorbidities who presented to the [facility] with complaints of melena, coffee-ground emesis and was found to have anemia of acute blood loss. The patient denies prior history of GI bleeding or abdominal pain. He was taking NSAID medications reporting Motrin 800 twice daily. No prior EGD or colonoscopy reported. Patient taken for EGD with findings of a large nonbleeding duodenal ulcer. Status: Acute Code(s): K92.2 - GASTROINTESTINAL HEMORRHAGE, UNSPECIFIED SNOMED Code(s): 68607062 (2) Anemia associated with acute blood loss Status: Acute Code(s): D62 - ACUTE POSTHEMORRHAGIC ANEMIA SNOMED Code(s): 870762566 Plan: supportive care Diet advance to low fiber to Continue Protonix 40 mg twice daily Continue to monitor hemoglobin and hematocrit and transfuse as needed Avoid NSAID use Continue to monitor stool output Thank you for allowing us to participate in the care of the patient we will continue to follow
--- NOTE | 2019-02-25 00:08 | P.DS ---
Providers Date of admission: 02/21/19 13:55 Expected date of discharge: 02/24/19 Attending physician: Fabián Felzi Consults: 02/21/19 13:55 Consult Physician Stat Consulting Provider: Eula Ness Consult Reason/Comments: ICU management Do you want consulting provider notified?: Already Contacted Consult Physician Urgent Consulting Provider: Alvin Callaway Consult Reason/Comments: upper GI bleed with symptomatic anemia Do you want consulting provider notified?: Already Contacted Primary care physician: Toro Mason [facility] Course: Chief Complaint: Tired Interval history: This is a very pleasant 83-year-old patient of Dr. Toro Mason. Chronic stable medical conditions include COPD, GERD, hyperlipidemia, hypertension, osteoarthritis. Patient for last 4 days been having dark stools. Patient does take Motrin for his arthritis. Patient for close to a year has been having gas pains and discomfort in the epigastric area. Patient became weak and tired. To the point he had to crawl on his fours.. Some nausea. No fever no chills. Admission hemoglobin was 3.8. 2 units of blood was ordered. Admitted to the ICU. GI was consulted. Patient received a total of 4 units of blood. EGD showed-large duodenal ulcer and grade C esophagitis. Today-tolerated diet. Feeling better. Stable. No dizziness no lightheadedness. Discussion and discharge planning more than 35 minutes consultation: Dr. Barrios from GI Physical examination: VITAL SIGNS: 97.5, 70, 16, 95/47, 100% room air GENERAL:sitting up, comfortable EYES: Pupils equal. Conjunctiva pale. HEENT: External appearance of nose and ears normal, oral cavity grossly normal , decreased hearing. NECK: JVD not raised; masses not palpable. HEART: First and second heart sounds are normal; no edema. LUNGS: Respiratory rate normal; clear to auscultation. ABDOMEN: Soft, no tenderness, no guarding or rigidity, liver spleen not palpable, no masses palpable. PSYCH: Alert and oriented x3; mood and affect normal. MUSCULOSKELETAL: Evidence of OA in the hands INVESTIGATIONS, reviewed in the clinical context: Hemoglobin 7.1 Previous testing White count 8.5 hemoglobin 3.8. This resulted 8 potassium 4.2 bun 56 creatinine 1.40. No recent lab work in the system. Assessment: -Acute severe GI bleed in a patient who does take Motrin, from large duodenal ulcer -Grade C distal esophagitis -Severe acute blood loss anemia from GI bleed, 4 units of blood was transfused -COPD in a current smoker -GERD -Hyperlipidemia -Essential hypertension -Primary osteoarthritis -Acute kidney injury, prerenal, from blood loss improved disposition: Home Patient Condition at Discharge: Stable Plan - Discharge Summary Discharge Rx Participant: No New Discharge Prescriptions: New Sucralfate [Carafate] 1 gm PO AC-TID #90 tab Metoprolol Tartrate [Lopressor] 12.5 mg PO BID #60 tab Pantoprazole [Protonix] 40 mg PO AC-BID #60 tablet. Acetaminophen Tab [Tylenol] 650 mg PO Q4HR PRN tab PRN Reason: Fever And/Or Mild Pain Discontinued amLODIPine [Norvasc] 5 mg PO HS Metoprolol Tartrate [Lopressor] 25 mg PO DAILY Lisinopril [Zestril] 10 mg PO DAILY Ibuprofen [Motrin Ib] 800 mg PO Q6H PRN PRN Reason: Pain Discharge Medication List Acetaminophen Tab [Tylenol] 650 mg PO Q4HR PRN tab 02/24/19 [Rx] Metoprolol Tartrate [Lopressor] 12.5 mg PO BID #60 tab 02/24/19 [Rx] Pantoprazole [Protonix] 40 mg PO AC-BID #60 tablet. 02/24/19 [Rx] Sucralfate [Carafate] 1 gm PO AC-TID #90 tab 02/24/19 [Rx] Follow up Appointment(s)/Referral(s): Toro Mason MD [Primary Care Provider] - 1 Week Alvin Callaway MD [STAFF PHYSICIAN] - 2 Weeks Ambulatory/Diagnostic Orders: Complete Blood Count w/diff [LAB.AMB] Time Frame: 02/26/19, Location: [facility] Patient Instructions/Handouts: Gastrointestinal Bleeding (DC), Diet for Stomach Ulcers and Gastritis (GEN), Fall Prevention for Older Adults (DC), Anemia (DC) Activity/Diet/Wound Care/Special Instructions: Offices closed, please call tuesday for follow up appointment. TYLENOL FOR PAIN NO NSAIDS NO ASPIRIN Discharge Disposition: HOME SELF-CARE
== END 2019-02-24 16:52 | disposition home or self-care (01) | DRG 378 ==
LOC: EC 11:27 → 2SICU 13:55 → 6NMEDSUR 02-23 00:12
PROVIDERS: ADMIT Hospitalist; ATTEND Hospitalist
PROC: 30233N1 Transfusion of Nonautologous Red Blood Cells into Peripheral Vein, Percutaneous Approach (ICD-10-PCS; 2019-02-22)
PROC: 0DB78ZX Excision of Stomach, Pylorus, Via Natural or Artificial Opening Endoscopic, Diagnostic (ICD-10-PCS; principal; 2019-02-22 08:10)
PROC: 0DB98ZX Excision of Duodenum, Via Natural or Artificial Opening Endoscopic, Diagnostic (ICD-10-PCS; principal; 2019-02-22 08:10)
DX: K26.4 Chronic or unspecified duodenal ulcer with hemorrhage (principal); D62 Acute posthemorrhagic anemia; N17.9 Acute kidney failure, unspecified; E87.2 Acidosis; E78.5 Hyperlipidemia, unspecified; F17.200 Nicotine dependence, unspecified, uncomplicated; I10 Essential (primary) hypertension; J44.9 Chronic obstructive pulmonary disease, unspecified; K21.0 Gastro-esophageal reflux disease with esophagitis; K44.9 Diaphragmatic hernia without obstruction or gangrene; M19.91 Primary osteoarthritis, unspecified site; Z96.643 Presence of artificial hip joint, bilateral; Z96.653 Presence of artificial knee joint, bilateral; E86.1 Hypovolemia; T39.315A Adverse effect of propionic acid derivatives, initial encounter; Z79.899 Other long term (current) drug therapy; Z82.49 Family history of ischemic heart disease and other diseases of the circulatory system; Z82.5 Family history of asthma and other chronic lower respiratory diseases; Z88.1 Allergy status to other antibiotic agents; Z98.42 Cataract extraction status, left eye; Z80.9 Family history of malignant neoplasm, unspecified
CPT/HCPCS: 36415; 43239; 71045; 74018; 76770; 80048; 80053; 82140; 82272; 82550; 83690; 83735; 84484; 85025; 85610; 85730; 86850; 86900; 86901; 86920; 96361; 96374; 99291

== ENCOUNTER 2019-02-28 17:49 | Inpatient (IN) | payer MEDICARE ==
[2019-02-28] MEDS ORDERED: SODIUM CHLORIDE 0.9% 500 ML 500 ML IV STA (17:55)
[2019-02-28] MEDS ORDERED: PANTOPRAZOLE 40 MG/10 ML VIAL IVP STA (17:55)
[2019-02-28 19:03] LABS: Prothrombin Time 10.9 sec (9.0-12.0)
[2019-02-28 19:30] LABS: Albumin 2.6 g/dL (3.5-5.0); Calcium 8.1 mg/dL (8.4-10.2); Magnesium 1.7 mg/dL (1.6-2.3); Total Bilirubin 0.8 mg/dL (0.2-1.3)
--- NOTE | 2019-02-28 19:30 | ED ---
GI Bleed HPI - General Chief complaint: GI Bleed Stated complaint: Abd pain Time Seen by Provider: 02/28/19 17:50 Source: EMS Mode of arrival: EMS Limitations: no limitations - History of Present Illness Initial comments: The patient is an 83-year-old male with past medical history of GI bleed who presents emergency room and was reported dark stools. Patient was recently hospitalized at her facility for similar complaint on February 21. At that time he had a hemoglobin of 3.8 and was sent to the intensive care unit. Endoscopy showed a duodenal ulcer. He remained hospitalized and was discharged with a hemoglobin of 7.3. States that since he has been home he has had minimal bowel movements. This running around 3 AM he did have a bowel movement that was brown in color and he thought that his symptoms were improving. Then throughout the day today he began having increasing stool output. States that his stools were black in coloration. He has felt weak today and states he barely got out of bed. He has not been taking any NSAIDs at home. States that he had associated abdominal pain and therefore took some Tylenol which the pain has now improved. He denies any nausea or vomiting. Denies hematemesis. No fevers or chills. No chest pain or shortness of breath. He has not on any blood thinners. Denies any back or flank pain. No changes in his urination. Denies any additional symptoms include headache, visual changes, unilateral numbness or weakness. There are no other alleviating, precipitating or modifying factors - Related Data Previous Rx's Medication Instructions Recorded Acetaminophen Tab [Tylenol] 650 mg PO Q4HR PRN tab 02/24/19 Metoprolol Tartrate [Lopressor] 12.5 mg PO BID #60 tab 02/24/19 Pantoprazole [Protonix] 40 mg PO AC-BID #60 tablet. 02/24/19 Sucralfate [Carafate] 1 gm PO AC-TID #90 tab 02/24/19 Allergies Allergy/AdvReac Type Severity Reaction Status Date / Time cephalexin monohydrate Allergy Anaphylaxis Verified 02/21/19 12:33 [From Keflex] Review of Systems ROS Statement: Those systems with pertinent positive or pertinent negative responses have been documented in the HPI. ROS Other: All systems not noted in ROS Statement are negative. Past Medical History Past Medical History: COPD, GERD/Reflux, GI Bleed, Hyperlipidemia, Hypertension, Osteoarthritis (OA), Skin Disorder Additional Past Medical History / Comment(s): HX: eczema History of Any Multi-Drug Resistant Organisms: None Reported Past Surgical History: Heart Catheterization, Joint Replacement Additional Past Surgical History / Comment(s): SX: souleymane knee and souleymane hip replacements, rt carpal tunnel, left rotator cuff, left cataract Past Anesthesia/Blood Transfusion Reactions: No Reported Reaction Past Psychological History: No Psychological Hx Reported Smoking Status: Former smoker Past Alcohol Use History: Daily Past Drug Use History: None Reported - Past Family History Mother Family Medical History: No Reported History Additional Family Medical History / Comment(s): " of old age" Father Family Medical History: COPD, Hypertension Additional Family Medical History / Comment(s): "had some problems" Sister(s) Family Medical History: Cancer General Exam Limitations: no limitations Course Vital Signs 02/28/19 02/28/19 17:51 19:16 Temperature 98.7 F 98.1 F Pulse Rate 67 88 Respiratory 18 18 Rate Blood Pressure 105/63 117/69 O2 Sat by Pulse 99 99 Oximetry Medical Decision Making - Medical Decision Making Upon arrival the patient is placed into room 4. A thorough history and physical exam was performed. Rectal exam does demonstrate a very small amount of black thin stool without bright red blood. Specimen is sent for a fecal occult. Peripheral IV was established by EMS. I did give him 80 mg of Protonix. I also gave the patient a 500 mL of normal saline. Laboratory studies were conducted. Patient does have some mild abdominal pain which she states is improved after he took Tylenol at home. Abdomen is nontender and therefore I will hold off on imaging on the patient. Laboratory studies did demonstrate a hemoglobin of 7.6. Coags are normal. CMP is unremarkable. Fecal occult is positive. I discussed results with the patient. He recommended overnight observation in order trend the patient's hemoglobin. Patient did agree to this. A call discuss case with Dr. Fabian who accepted admission for the patient. Patient is currently awaiting a bed on the floor - Lab Data Result diagrams: 02/28/19 18:08 02/28/19 18:08 Lab Results 02/28/19 02/28/19 02/28/19 Range/Units 18:08 18:08 18:08 WBC 5.0 (3.8-10.6) k/uL RBC 3.05 L (4.30-5.90) m/uL Hgb 7.6 L (13.0-17.5) gm/dL Hct 24.4 L (39.0-53.0) % MCV 79.8 L (80.0-100.0) fL MCH 25.0 (25.0-35.0) pg MCHC 31.3 (31.0-37.0) g/dL RDW 19.8 H (11.5-15.5) % Plt Count 210 (150-450) k/uL Neutrophils % (Manual) 71 % Lymphocytes % (Manual) 22 % Monocytes % (Manual) 6 % Eosinophils % (Manual) 1 % Neutrophils # (Manual) 3.55 (1.3-7.7) k/uL Lymphocytes # (Manual) 1.10 (1.0-4.8) k/uL Monocytes # (Manual) 0.30 (0-1.0) k/uL Eosinophils # (Manual) 0.05 (0-0.7) k/uL Nucleated RBCs 0 (0-0) /100 WBC Manual Slide Review Performed Polychromasia Present Hypochromasia Marked Poikilocytosis Marked Anisocytosis Slight Microcytosis Slight PT (9.0-12.0) sec INR (<1.2) APTT (22.0-30.0) sec Sodium 136 L (137-145) mmol/L Potassium 4.0 (3.5-5.1) mmol/L Chloride 106 (98-107) mmol/L Carbon Dioxide 23 (22-30) mmol/L Anion Gap 7 mmol/L BUN 19 (9-20) mg/dL Creatinine 1.05 (0.66-1.25) mg/dL Est GFR (CKD-EPI)AfAm 77 (>60 ml/min/1.73 sqM) Est GFR (CKD-EPI)NonAf 67 (>60 ml/min/1.73 sqM) Glucose 100 H (74-99) mg/dL Plasma Lactic Acid Mani 0.9 (0.7-2.0) mmol/L Calcium 8.1 L (8.4-10.2) mg/dL Magnesium 1.7 (1.6-2.3) mg/dL Total Bilirubin 0.8 (0.2-1.3) mg/dL AST 33 (17-59) U/L ALT 21 (4-49) U/L Alkaline Phosphatase 60 (38-126) U/L Total Protein 5.0 L (6.3-8.2) g/dL Albumin 2.6 L (3.5-5.0) g/dL Lipase 240 (23-300) U/L Stool Occult Blood (Negative) Blood Type Blood Type Recheck Bld Type Recheck Status Antibody Screen Spec Expiration Date 02/28/19 02/28/19 02/28/19 Range/Units 18:08 18:08 19:00 WBC (3.8-10.6) k/uL RBC (4.30-5.90) m/uL Hgb (13.0-17.5) gm/dL Hct (39.0-53.0) % MCV (80.0-100.0) fL MCH (25.0-35.0) pg MCHC (31.0-37.0) g/dL RDW (11.5-15.5) % Plt Count (150-450) k/uL Neutrophils % (Manual) % Lymphocytes % (Manual) % Monocytes % (Manual) % Eosinophils % (Manual) % Neutrophils # (Manual) (1.3-7.7) k/uL Lymphocytes # (Manual) (1.0-4.8) k/uL Monocytes # (Manual) (0-1.0) k/uL Eosinophils # (Manual) (0-0.7) k/uL Nucleated RBCs (0-0) /100 WBC Manual Slide Review Polychromasia Hypochromasia Poikilocytosis Anisocytosis Microcytosis PT 10.9 (9.0-12.0) sec INR 1.0 (<1.2) APTT 20.8 L (22.0-30.0) sec Sodium (137-145) mmol/L Potassium (3.5-5.1) mmol/L Chloride (98-107) mmol/L Carbon Dioxide (22-30) mmol/L Anion Gap mmol/L BUN (9-20) mg/dL Creatinine (0.66-1.25) mg/dL Est GFR (CKD-EPI)AfAm (>60 ml/min/1.73 sqM) Est GFR (CKD-EPI)NonAf (>60 ml/min/1.73 sqM) Glucose (74-99) mg/dL Plasma Lactic Acid Mani (0.7-2.0) mmol/L Calcium (8.4-10.2) mg/dL Magnesium (1.6-2.3) mg/dL Total Bilirubin (0.2-1.3) mg/dL AST (17-59) U/L ALT (4-49) U/L Alkaline Phosphatase (38-126) U/L Total Protein (6.3-8.2) g/dL Albumin (3.5-5.0) g/dL Lipase (23-300) U/L Stool Occult Blood Positive (Negative) Blood Type B Positive Blood Type Recheck B Pos Bld Type Recheck Status No Antibody Screen NEGATIVE Spec Expiration Date 03/03/2019 - 3744 - EKG Data EKG Comments: EKG demonstrates a sinus rhythm with frequent PVCs. Rate of 80. IL interval 140. QRS 92. QTC of 447. No acute ST segment elevation or depressions concerning for ischemic changes Disposition Clinical Impression: Anemia, GI bleed Disposition: ADMITTED IP TO THIS HOSP Condition: Stable Is patient prescribed a controlled substance at d/c from ED?: No Referrals: Toro Mason MD [Primary Care Provider] - 1-2 days Decision to Admit Reason: Admit from EC Decision Date: 02/28/19 Decision Time: 20:29
[2019-02-28 19:36] LABS: Partial Thromboplastin Time 20.8 sec (22.0-30.0)
[2019-02-28 19:37] LABS: Anisocytosis Slight; HCT 24.4 % (39.0-53.0); HGB 7.6 gm/dL (13.0-17.5); Hypochromasia Marked; MCHC 31.3 g/dL (31.0-37.0); MCV 79.8 fL (80.0-100.0); Mean Platelet Volume 9.3; Microcytosis Slight; Platelet Count 210 k/uL (150-450); Poikilocytosis Marked; RBC 3.05 m/uL (4.30-5.90); RDW 19.8 % (11.5-15.5)
[2019-02-28 19:54] LABS: Eosinophils # (M) 0.05 k/uL (0-0.7); Neutrophils # (M) 3.55 k/uL (1.3-7.7); Neutrophils % (M) 71 %; Nucleated Red Blood Cells 0 /100 WBC (0-0); Total Cells Counted 100
[2019-02-28 19:55] LABS: Polychromasia Present
[2019-02-28] MEDS ORDERED: MORPHINE SULFATE 4 MG/ML SYRINGE IVP STA (20:29)
[2019-02-28] MEDS ORDERED: ONDANSETRON 4 MG/2 ML VIAL IVP STA (20:30)
[2019-02-28] MEDS ORDERED: NALOXONE 0.4 MG/ML 1 ML VIAL IV PRN (20:30)
[2019-02-28] MEDS ORDERED: ACETAMINOPHEN TAB 325 MG TAB PO PRN (20:32)
[2019-02-28] MEDS: SODIUM CHLORIDE 0.9% 1,000 ML IV SCH (21:03)
[2019-02-28 22:07] LABS: Glucose,Whole Blood 101 mg/dL (75-99)
--- NOTE | 2019-02-28 23:02 | P.HPIM ---
History of Present Illness H&P Date: 02/28/19 The patient is an 83 yo M with a PMH of COPD, HTN, HLD, and recent UGIB from large duodenal ulcer presented to the ED w/ complaints of abdominal pain, nausea, and melena. The patient was recently discharged from the hospital on 02/24 after presenting with similar complaints and undergoing EGD which revealed a large cratered duodenal ulcer, and grade C esophagitis of the distal esophagus. The patient notes that following his discharge, he initially felt well though then developed epigastric abdominal pain yesterday which gradually worsened, nonradiating, 8 out of 10 at the time of interview, worsened by laying down, with no alleviating factors. He also noted 3-4 loose blackish stools throughout the day today along with nausea, though had no episodes of vomiting. He notes that the abdominal pain is worse from before. He otherwise denied chest pain, shortness of breath, fever, chills, or cough. He noted compliance with his Protonix and avoidance of any NSAIDs. He underwent an extensive evaluation in the emergency room and EKG showing sinus rhythm at 80 bpm with PVCs and QTC 447, as reviewed by me. FOBT was positive with laboratory evaluation showing WBC count 5, hemoglobin 7.6 (from 7.1 on discharge), platelets 210, sodium 136, potassium 4, BUN 19, creatinine 1.05, and glucose 100. He reports that his last bowel movement was in the morning today, though notes that he has been unable to eat anything due to the nausea. Review of Systems Pertinent positives and negatives as discussed in HPI, a complete review of systems was performed and all other systems are negative. Past Medical History Past Medical History: COPD, GERD/Reflux, GI Bleed, Hyperlipidemia, Hypertension, Osteoarthritis (OA), Skin Disorder Additional Past Medical History / Comment(s): HX: eczema History of Any Multi-Drug Resistant Organisms: None Reported Past Surgical History: Heart Catheterization, Joint Replacement Additional Past Surgical History / Comment(s): SX: souleymane knee and souleymane hip replacements, rt carpal tunnel, left rotator cuff, left cataract Past Anesthesia/Blood Transfusion Reactions: No Reported Reaction Past Psychological History: No Psychological Hx Reported Smoking Status: Former smoker Past Alcohol Use History: Daily Past Drug Use History: None Reported - Past Family History Mother Family Medical History: No Reported History Additional Family Medical History / Comment(s): " of old age" Father Family Medical History: COPD, Hypertension Additional Family Medical History / Comment(s): "had some problems" Sister(s) Family Medical History: Cancer Medications and Allergies Home Medications Medication Instructions Recorded Confirmed Type Acetaminophen Tab [Tylenol] 650 mg PO Q4HR PRN tab 02/24/19 02/28/19 Rx Pantoprazole [Protonix] 40 mg PO AC-BID #60 tablet. 02/24/19 02/28/19 Rx Sucralfate [Carafate] 1 gm PO AC-TID #90 tab 02/24/19 02/28/19 Rx Calcium Carbonate [Tums] 500 mg PO ONCE PRN 02/28/19 02/28/19 History Lisinopril [Zestril] 10 mg PO DAILY 02/28/19 02/28/19 History Metoprolol Tartrate [Lopressor] 12.5 mg PO BID 02/28/19 02/28/19 History amLODIPine [Norvasc] 5 mg PO HS 02/28/19 02/28/19 History Allergies Allergy/AdvReac Type Severity Reaction Status Date / Time cephalexin monohydrate AdvReac Nausea & Verified 02/28/19 21:11 [From Keflex] Vomiting Physical Exam Vitals: Vital Signs Temp Pulse Resp BP Pulse Ox 02/28/19 21:00 98 18 109/60 98 02/28/19 19:16 98.1 F 88 18 117/69 99 02/28/19 17:51 98.7 F 67 18 105/63 99 Intake and Output 02/28/19 02/28/19 02/28/19 06:59 14:59 22:59 Other: Weight 79.333 kg General: non toxic, in mild distress from pain, appears at stated age, normal weight Derm: no unusual rashes/lesions no unusual ecchymoses, warm, dry Head: atraumatic, normocephalic, symmetric Eyes: EOMI, no lid lag, anicteric sclera, pupils equal round reactive to light ENT: Nose and ears atraumatic, no thrush, no pharyngeal erythema Neck: No thyromegaly, no cervical lymphadenopathy, trachea midline, supple Mouth: no lip lesion, mucus membranes moist Cardiovascular: S1S2 reg, no murmur, positive posterior tibial pulse bilateral, no edema, capillary refill less than 2 seconds Lungs: CTA bilateral, no rhonchi, no rales , no accessory muscle use Abdominal: soft, mild tenderness to palpation, no guarding, no appreciable organomegaly, normal bowel sounds Ext: no gross muscle atrophy, muscle strength 5 out of 5 in all 4 extremities grossly, no contractures, Neuro: CN II-XI grossly intact, light touch intact all 4 extremities, finger to nose within normal limits, Psych: Alert, oriented, appropriate affect Results CBC & Chem 7: 02/28/19 18:08 02/28/19 18:08 Labs: Abnormal Lab Results - Last 24 Hours (Table) 02/28/19 02/28/19 02/28/19 Range/Units 18:08 18:08 18:08 RBC 3.05 L (4.30-5.90) m/uL Hgb 7.6 L (13.0-17.5) gm/dL Hct 24.4 L (39.0-53.0) % MCV 79.8 L (80.0-100.0) fL RDW 19.8 H (11.5-15.5) % APTT 20.8 L (22.0-30.0) sec Sodium 136 L (137-145) mmol/L Glucose 100 H (74-99) mg/dL POC Glucose (mg/dL) (75-99) mg/dL Calcium 8.1 L (8.4-10.2) mg/dL Total Protein 5.0 L (6.3-8.2) g/dL Albumin 2.6 L (3.5-5.0) g/dL 02/28/19 Range/Units 22:05 RBC (4.30-5.90) m/uL Hgb (13.0-17.5) gm/dL Hct (39.0-53.0) % MCV (80.0-100.0) fL RDW (11.5-15.5) % APTT (22.0-30.0) sec Sodium (137-145) mmol/L Glucose (74-99) mg/dL POC Glucose (mg/dL) 101 H (75-99) mg/dL Calcium (8.4-10.2) mg/dL Total Protein (6.3-8.2) g/dL Albumin (3.5-5.0) g/dL Assessment and Plan Plan: Acute blood loss anemia from likely UGIB -Protonix IV -Continue to monitor CBC every 8 hourly -GI consult -IV fluids -Antiemetics Chronic conditions: COPD, hyperlipidemia, hypertension -Hold antihypertensives in setting of borderline BP and active gentleman bleeding. Resume as warranted -Continue with remaining home meds. DVT prophylaxis -IPCDs The patient is admitted with an anticipated greater than 2 midnight stay for evaluation of acute blood loss anemia CODE STATUS: Full code Discussed with: Patient Anticipated discharge date: 2-[address]: Home A total of 40 minutes was spent on the care of this complex patient more than 50% of the time was spent in counseling and care coordination.
[2019-02-28] MEDS: METOPROLOL TARTRATE 12.5 MG TAB PO SCH (23:52)
[2019-03-01 01:15] LABS: Anisocytosis Slight; Basophils % (A) 0 %; Eosinophils % (A) 1 %; HCT 20.8 % (39.0-53.0); Hypochromasia Marked; Lymphocytes # (A) 0.4 k/uL (1.0-4.8); Lymphocytes % (A) 9 %; MCH 25.3 pg (25.0-35.0); MCHC 30.6 g/dL (31.0-37.0); MCV 82.6 fL (80.0-100.0); Mean Platelet Volume 9.5; Microcytosis Slight; Monocytes # (A) 0.4 k/uL (0-1.0); Monocytes % (A) 9 %; Neutrophils # (A) 3.5 k/uL (1.3-7.7); Neutrophils % (A) 79 %; Platelet Count 181 k/uL (150-450); Poikilocytosis Marked; RBC 2.51 m/uL (4.30-5.90); WBC 4.4 k/uL (3.8-10.6)
[2019-03-01 01:18] LABS: HGB 6.4 gm/dL (13.0-17.5)
[2019-03-01] MEDS: MORPHINE SULFATE 2 MG/ML SYRINGE IVP PRN (02:30)
[2019-03-01] MEDS: SODIUM CHLORIDE 0.9% 1,000 ML IV SCH ×2 (05:39→17:20)
[2019-03-01 05:58] LABS: Anisocytosis Slight; Basophils % (A) 0 %; Eosinophils % (A) 1 %; HCT 23.6 % (39.0-53.0); HGB 7.4 gm/dL (13.0-17.5); Hypochromasia Marked; Lymphocytes # (A) 0.4 k/uL (1.0-4.8); Lymphocytes % (A) 9 %; MCH 26.2 pg (25.0-35.0); MCHC 31.3 g/dL (31.0-37.0); MCV 83.6 fL (80.0-100.0); Mean Platelet Volume 9.1; Microcytosis Slight; Monocytes # (A) 0.4 k/uL (0-1.0); Monocytes % (A) 8 %; Neutrophils # (A) 3.5 k/uL (1.3-7.7); Neutrophils % (A) 80 %; Platelet Count 203 k/uL (150-450); Poikilocytosis Marked; RBC 2.82 m/uL (4.30-5.90); RDW 18.6 % (11.5-15.5); WBC 4.4 k/uL (3.8-10.6)
[2019-03-01 06:29] LABS: African American GFR (CKD) >90 (>60 ml/min/1.73 sqM); Anion Gap 5 mmol/L; Blood Urea Nitrogen 19 mg/dL (9-20); Calcium 7.7 mg/dL (8.4-10.2); Carbon Dioxide 22 mmol/L (22-30); Chloride 108 mmol/L (98-107); Glucose 88 mg/dL (74-99); Non-African American GFR(CKD) 79 (>60 ml/min/1.73 sqM); Potassium 4.1 mmol/L (3.5-5.1); Sodium 135 mmol/L (137-145)
[2019-03-01] MEDS ORDERED: ONDANSETRON 4 MG/2 ML VIAL IVP PRN (08:38)
[2019-03-01] MEDS: SUCRALFATE 1 GM TAB PO SCH ×3 (08:45→17:16)
[2019-03-01] MEDS ORDERED: PANTOPRAZOLE 40 MG/10 ML VIAL IV SCH (09:00)
[2019-03-01] MEDS: METOPROLOL TARTRATE 12.5 MG TAB PO SCH (10:09)
--- NOTE | 2019-03-01 10:32 | P.PN ---
Subjective Progress Note Date: 03/01/19 Principal diagnosis: GI bleeding Patient does not have any further episodes of GI bleeding. No black stools. He has been nothing by mouth since he came in, no nausea or vomiting. When he was given his morning medications this morning he had a very upset stomach. Objective - Vital Signs Vital signs: Vital Signs Temp 98.7 F 03/01/19 08:00 Pulse 78 03/01/19 10:00 Resp 18 03/01/19 10:00 BP 101/51 03/01/19 10:00 Pulse Ox 95 03/01/19 10:00 Intake & Output 02/28/19 03/01/19 03/01/19 18:59 06:59 18:59 Intake Total 1210 400 Output Total 600 Balance 610 400 Weight 79.333 kg 87 kg Intake: IV 900 400 Sodium Chloride 0.9% 1, 900 400 000 ml @ 100 mls/hr IV . Q10H [facility] Rx#:[id number] Blood Product 310 Rc As-1 Unit 310 [id number] Output: Urine 400 Emesis 200 Other: Voiding Method Urinal - Exam Constitutional: No acute distress, conversant, pleasant Eyes:Anicteric sclerae, moist conjunctiva, no lid-lag, PERRLA, ENMT: Oropharynx clear, no erythema, exudates Neck: Supple, FROM, no masses, or JVD, No carotid bruits, No thyromegaly Lungs: Clear to auscultation, Clear to percussion, Normal respiratory effort, no accessory muscle use Cardiovascular: Heart regular in rate and rhythm, No murmurs, gallops, or rubs, No peripheral edema Abdominal: Soft, Nontender, no guarding, rebound or rigidity, Normoactive bowel sounds, No hepatomegaly, No splenomegaly, No palpable mass Skin: Normal temperature, tone, texture, turgor, no induration, No subcutaneous nodules, No rash, lesions, No ulcers Extremities: No digital cyanosis, No clubbing, Pedal pulses intact and symmetrical, Radial pulses intact and symmetrical, No calf tenderness Psychiatric: Alert and oriented to person, place and time, appropriate affect, intact judgement Neuro: Muscles Strength 5/5 in all 4 extremities, Sensation to light touch grossly present throughout, Cranial nerves II-XII grossly intact, no focal sensory deficits - Labs CBC & Chem 7: 03/01/19 05:17 03/01/19 05:17 Labs: Abnormal Lab Results - Last 24 Hours (Table) 02/28/19 02/28/19 02/28/19 Range/Units 18:08 18:08 18:08 RBC 3.05 L (4.30-5.90) m/uL Hgb 7.6 L (13.0-17.5) gm/dL Hct 24.4 L (39.0-53.0) % MCV 79.8 L (80.0-100.0) fL MCHC (31.0-37.0) g/dL RDW 19.8 H (11.5-15.5) % Lymphocytes # (1.0-4.8) k/uL APTT 20.8 L (22.0-30.0) sec Sodium 136 L (137-145) mmol/L Chloride (98-107) mmol/L Glucose 100 H (74-99) mg/dL POC Glucose (mg/dL) (75-99) mg/dL Calcium 8.1 L (8.4-10.2) mg/dL Total Protein 5.0 L (6.3-8.2) g/dL Albumin 2.6 L (3.5-5.0) g/dL Crossmatch 02/28/19 02/28/19 03/01/19 Range/Units 18:08 22:05 00:50 RBC 2.51 L (4.30-5.90) m/uL Hgb 6.4 L* (13.0-17.5) gm/dL Hct 20.8 L (39.0-53.0) % MCV (80.0-100.0) fL MCHC 30.6 L (31.0-37.0) g/dL RDW 19.0 H (11.5-15.5) % Lymphocytes # 0.4 L (1.0-4.8) k/uL APTT (22.0-30.0) sec Sodium (137-145) mmol/L Chloride (98-107) mmol/L Glucose (74-99) mg/dL POC Glucose (mg/dL) 101 H (75-99) mg/dL Calcium (8.4-10.2) mg/dL Total Protein (6.3-8.2) g/dL Albumin (3.5-5.0) g/dL Crossmatch See Detail 03/01/19 03/01/19 Range/Units 05:17 05:17 RBC 2.82 L (4.30-5.90) m/uL Hgb 7.4 L (13.0-17.5) gm/dL Hct 23.6 L (39.0-53.0) % MCV (80.0-100.0) fL MCHC (31.0-37.0) g/dL RDW 18.6 H (11.5-15.5) % Lymphocytes # 0.4 L (1.0-4.8) k/uL APTT (22.0-30.0) sec Sodium 135 L (137-145) mmol/L Chloride 108 H (98-107) mmol/L Glucose (74-99) mg/dL POC Glucose (mg/dL) (75-99) mg/dL Calcium 7.7 L (8.4-10.2) mg/dL Total Protein (6.3-8.2) g/dL Albumin (3.5-5.0) g/dL Crossmatch Assessment and Plan Plan: Acute blood loss anemia from likely UGIB, recently found to have duodenal ulcer per EGD -Protonix IV -Continue to monitor CBC -GI consulted -IV fluids -Antiemetics Chronic conditions: COPD, hyperlipidemia, hypertension -Hold antihypertensives in setting of borderline BP and active bleeding. Resume as warranted -Continue with remaining home meds. DVT prophylaxis -IPCDs CODE STATUS: Full code Discussed with: Patient Anticipated discharge date: 2-[address]: Home A total of 35 minutes was spent on the care of this complex patient more than 50% of the time was spent in counseling and care coordination.
[2019-03-01] MEDS ORDERED: IV FLUID CONTINUATION 1,000 ML IV ONE ×2 (11:16)
[2019-03-01] MEDS ORDERED: PROPOFOL 10 MG/ML 20 ML VIAL IV ONE (11:17)
[2019-03-01] MEDS ORDERED: LIDOCAINE 1% INJ 10MG/ML (20 ML MDV) ONE (11:17)
--- NOTE | 2019-03-01 11:31 | P.PCN ---
Date of Procedure: 03/01/19 Procedure(s) Performed: BRIEF HISTORY: Patient is a 83-year-old, pleasant, white male admitted hospital with melena that started since yesterday evening. Patient was just discharged home from the hospital with an acute upper GI bleed and underwent an upper endoscopy by that showed a large duodenal bulbar ulcer with no active bleeding. He was discharged home on Protonix 40 mg twice daily. 3 admitted to hospital yesterday with a hemoglobin of 6.4 requiring 1 unit of blood transition. He is scheduled for repeat upper endoscopy.. PROCEDURE PERFORMED: Esophagogastroduodenoscopy with biopsy. PREOPERATIVE DIAGNOSIS: Melena since yesterday and hemoglobin of 6.4 g/dL. IV sedation per anesthesia. PROCEDURE: After informed consent was obtained, the patient was brought into the endoscopy unit. IV sedation was administered by Anesthesia under continuous monitoring. Initially the Olympus GIF-140 video endoscope was inserted into the mouth. Esophagus intubated without any difficulty. It was gradually advanced into the stomach and duodenum and carefully examined. In the bulb of the d uodenum there was a 3 cm clean-based ulceration identified with slightly friable margins but no active bleeding noted. No visible vessel seen. The second part of the duodenum appeared normal. The scope at this time was withdrawn to the stomach, adequately insufflated with air, and upon careful examination, mucosa of the antrum, mild gastritis and biopsies were done from this area. The body, cardia and the fundus appeared normal. The scope was then withdrawn into the esophagus. The GE junction was located at 39 cm from the incisors. Small hiatal hernia noted. The esophagus appeared normal. There were no erosions or ulcerations seen and the patient tolerated the procedure well. IMPRESSION: 1. 2-3 cm clean-based deep duodenal bulbar ulcer with no active bleeding. 2. Small hiatal hernia 3. Previously noted esophagitis has completely healed RECOMMENDATIONS: The findings of this examination were discussed with the patient.. At this time will monitor CBC every 12 hours. Start him on a clear liquid diet and advance as tolerated. Continue Protonix 40 mg every 12 hours.
[2019-03-01 11:55] VITALS: BMI 27.5
--- NOTE | 2019-03-01 13:30 | CONS ---
CONSULTATION DATE OF SERVICE: 03/01/2019 REASON FOR CONSULTATION: Acute GI bleed. HISTORY OF PRESENT ILLNESS: The patient is an 83-year-old pleasant white male who was just discharged from the hospital a week ago when he presented with acute upper GI bleed. He underwent an upper endoscopy by Dr. Callaway and was noted to have a large duodenal bulbar ulcer with no active bleeding and severe grade reflux esophagitis. The patient was discharged home on Protonix 40 mg twice daily. Yesterday morning, he had normal bowel but yesterday afternoon he started having multiple episodes of black tarry stools associated with some epigastric pain and nausea, but no episodes of emesis. He came into the emergency room and was subsequently noted to have hemoglobin of 7.6 and last night it was down to 6.4 g/dL. At the time of discharge from the hospital, his hemoglobin was 7.1 g/dL. He had several episodes of black tarry stools yesterday. He received one unit of PRBC transfusion last night. This morning he still continues to complain of mild epigastric discomfort. No further episodes of nausea or vomiting. PAST MEDICAL HISTORY: Significant for recent peptic ulcer disease, history of hypertension, hyperlipidemia, and degenerative joint disease, COPD, eczema. PAST SURGICAL HISTORY: Bilateral knee replacement, right carpal tunnel surgery, left rotator cuff surgery. MEDICATIONS AT HOME: Tylenol, Protonix, Carafate, Tums, Zestril, Lopressor, Norvasc. ALLERGIES: Allergies to KEFLEX. SOCIAL HISTORY: No smoking. Former smoker. No alcohol use. FAMILY HISTORY: Mother of old age and father had some hypertension. REVIEW OF SYSTEMS: CARDIOPULMONARY: No chest pain or shortness of breath. GENITOURINARY: No dysuria or hematuria. MUSCULOSKELETAL: Unremarkable. SKIN: Unremarkable. ENDOCRINE: Unremarkable. PSYCHIATRIC: Unremarkable. NEUROLOGY: Unremarkable. ENT/VISION: Unremarkable. CONSTITUTIONAL: No recent weight loss. No fever, chills, night sweats. PHYSICAL EXAMINATION: On physical examination, blood pressure is 102/62, pulse rate 82, temperature 98. HEENT EXAMINATION: Unremarkable. Conjunctivae pink. Sclerae anicteric. Oral cavity no lesions. NECK: No JVD or lymph node enlargement. CHEST: Clear to auscultation. HEART: Regular rate and rhythm. ABDOMEN: Soft. Mild tenderness in the epigastric area. The rest of the abdomen was benign. Bowel sounds are positive. No organomegaly. EXTREMITIES: No pedal edema. SKIN: No rashes. NEUROLOGIC: Alert and oriented x3. No focal deficits. LABS: Hemoglobin initially was 7.6 yesterday, last night it was 6.4 and today it is 7.4 after one unit of blood transfusion. BUN and creatinine are within normal limits. Stool occult blood was positive. IMPRESSION: 1. Acute upper gastrointestinal bleed/melena that started since yesterday evening. The patient was just discharged from the hospital when he was admitted a week ago with acute upper gastrointestinal bleed. He had an upper endoscopy done by Dr. Callaway that showed a large duodenal bulbar ulcer and LA grade C reflux esophagitis. He was discharged home on Protonix 40 mg twice daily as well as Carafate. He dropped his hemoglobin to 6.5 requiring one unit of blood transfusion. Today hemoglobin is 7.4 g/dL, probably rebleeding from the duodenal ulcer. 2. History of hypertension. RECOMMENDATION: 1. Continue with IV Protonix 40 mg q.12. 2. We will proceed with a repeat upper endoscopy to evaluate this further. 3. Keep him n.p.o. 4. CBC every 6 hours. Thank you for this consultation. MMODL / IJN: [id number] /
[2019-03-01 15:09] LABS: Anisocytosis Slight; Basophils % (A) 0 %; Eosinophils # (A) 0.1 k/uL (0-0.7); Eosinophils % (A) 2 %; HCT 23.9 % (39.0-53.0); HGB 7.2 gm/dL (13.0-17.5); Hypochromasia Marked; Lymphocytes # (A) 0.5 k/uL (1.0-4.8); Lymphocytes % (A) 15 %; MCH 25.5 pg (25.0-35.0); MCHC 30.2 g/dL (31.0-37.0); MCV 84.4 fL (80.0-100.0); Mean Platelet Volume 9.3; Monocytes # (A) 0.5 k/uL (0-1.0); Monocytes % (A) 14 %; Neutrophils # (A) 2.2 k/uL (1.3-7.7); Neutrophils % (A) 66 %; Platelet Count 191 k/uL (150-450); Poikilocytosis Marked; RBC 2.83 m/uL (4.30-5.90); RDW 18.5 % (11.5-15.5); WBC 3.4 k/uL (3.8-10.6)
[2019-03-01 15:31] LABS: Poikilocytosis (M) Present; Polychromasia Present; Rouleaux Present
[2019-03-01 18:50] LABS: Anisocytosis Slight; Basophils % (A) 1 %; Eosinophils # (A) 0.1 k/uL (0-0.7); Eosinophils % (A) 3 %; HCT 25.4 % (39.0-53.0); HGB 7.3 gm/dL (13.0-17.5); Hypochromasia Marked; Lymphocytes # (A) 0.4 k/uL (1.0-4.8); Lymphocytes % (A) 15 %; MCH 25.4 pg (25.0-35.0); MCHC 28.8 g/dL (31.0-37.0); MCV 88.2 fL (80.0-100.0); Mean Platelet Volume 9.5; Monocytes # (A) 0.4 k/uL (0-1.0); Monocytes % (A) 13 %; Neutrophils % (A) 65 %; Platelet Count 207 k/uL (150-450); Poikilocytosis Moderate; RBC 2.88 m/uL (4.30-5.90); RDW 18.2 % (11.5-15.5)
[2019-03-01] MEDS: PANTOPRAZOLE 40 MG/10 ML VIAL IV SCH (19:50)
[2019-03-02] MEDS: SODIUM CHLORIDE 0.9% 1,000 ML IV SCH ×3 (04:03→22:37)
[2019-03-02 05:58] LABS: Anisocytosis Slight; Basophils % (A) 0 %; Eosinophils # (A) 0.1 k/uL (0-0.7); Eosinophils % (A) 4 %; HCT 22.9 % (39.0-53.0); HGB 7.1 gm/dL (13.0-17.5); Hypochromasia Marked; Lymphocytes # (A) 0.4 k/uL (1.0-4.8); Lymphocytes % (A) 21 %; MCH 25.5 pg (25.0-35.0); Mean Platelet Volume 8.8; Microcytosis Slight; Monocytes # (A) 0.3 k/uL (0-1.0); Monocytes % (A) 12 %; Neutrophils # (A) 1.2 k/uL (1.3-7.7); Neutrophils % (A) 58 %; Platelet Count 177 k/uL (150-450); Poikilocytosis Marked; RBC 2.78 m/uL (4.30-5.90); RDW 19.3 % (11.5-15.5); WBC 2.1 k/uL (3.8-10.6)
[2019-03-02 06:11] LABS: MCV 82.4 fL (80.0-100.0)
[2019-03-02] MEDS: SUCRALFATE 1 GM TAB PO SCH ×3 (06:12→17:23)
[2019-03-02 06:21] LABS: Calcium 7.3 mg/dL (8.4-10.2); Magnesium 1.6 mg/dL (1.6-2.3); Phosphorus 3.1 mg/dL (2.5-4.5); Potassium 3.9 mmol/L (3.5-5.1)
[2019-03-02] MEDS ORDERED: Magnesium Replacement Protocol 1 EACH MISC MISCELLANE PRN (07:14)
[2019-03-02] MEDS: MAGNESIUM SULFATE-D5W PMX 1 GM in DEXTROSE/WATER 1 100ML.BAG IVPB SCH ×2 (07:21→08:38)
[2019-03-02] MEDS: PANTOPRAZOLE 40 MG/10 ML VIAL IV SCH ×2 (08:38→21:37)
[2019-03-02] MEDS: MORPHINE SULFATE 2 MG/ML SYRINGE IVP PRN ×2 (08:44→16:12)
--- NOTE | 2019-03-02 09:45 | P.PN ---
Subjective Progress Note Date: 03/02/19 Feels ok , no cp no sob , no n/v no abd pain , no gross bleeding Objective - Vital Signs Vital signs: Vital Signs Temp 97.6 F 03/02/19 08:00 Pulse 84 03/02/19 08:00 Resp 12 03/02/19 08:00 BP 105/75 03/02/19 08:00 Pulse Ox 99 03/02/19 08:00 Intake & Output 03/01/19 03/02/19 03/02/19 18:59 06:59 18:59 Intake Total 1400 600 Output Total 450 275 Balance 1400 -450 325 Weight 87 kg Intake: IV 1400 100 Sodium Chloride 0.9% 1, 1200 100 000 ml @ 100 mls/hr IV . Q10H [facility] Rx#:[id number] Intake, IV Titration 100 Amount Magnesium Sulfate-D5w Pmx 100 1 gm In Dextrose/Water 1 100ml.bag @ 100 mls/hr IVPB Q1H [facility] Rx#: [id number] Oral 400 Output: Urine 450 275 Other: Voiding Method Urinal Urinal Urinal # Voids 2 1 - Exam Constitutional: No acute distress, conversant, pleasant Eyes:Anicteric sclera PERRLA, Neck: Supple, FROM, no masses, or JVD Lungs: Clear to auscultation, Clear to percussion, Normal respiratory effort, no accessory muscle use Cardiovascular: Heart regular in rate and rhythm, No murmurs, gallops, or rubs, No peripheral edema Abdominal: Soft, Nontender, no guarding, rebound or rigidity, Normoactive bowel sounds Skin: Normal temperature Extremities: No digital cyanosis, No clubbing Psychiatric: Alert and oriented to person, place and time, appropriate affect, intact judgement Neuro: Muscles Strength 5/5 in all 4 extremities, Cranial nerves II-XII grossly intact, no focal sensory deficits - Labs CBC & Chem 7: 03/02/19 05:34 03/02/19 05:34 Labs: Abnormal Lab Results - Last 24 Hours (Table) 03/01/19 03/01/19 03/02/19 Range/Units 14:46 17:39 05:34 WBC 3.4 L 3.0 L 2.1 L (3.8-10.6) k/uL RBC 2.83 L 2.88 L 2.78 L (4.30-5.90) m/uL Hgb 7.2 L 7.3 L 7.1 L (13.0-17.5) gm/dL Hct 23.9 L 25.4 L 22.9 L (39.0-53.0) % MCHC 30.2 L 28.8 L (31.0-37.0) g/dL RDW 18.5 H 18.2 H 19.3 H (11.5-15.5) % Neutrophils # 1.2 L (1.3-7.7) k/uL Lymphocytes # 0.5 L 0.4 L 0.4 L (1.0-4.8) k/uL Chloride (98-107) mmol/L Calcium (8.4-10.2) mg/dL 03/02/19 Range/Units 05:34 WBC (3.8-10.6) k/uL RBC (4.30-5.90) m/uL Hgb (13.0-17.5) gm/dL Hct (39.0-53.0) % MCHC (31.0-37.0) g/dL RDW (11.5-15.5) % Neutrophils # (1.3-7.7) k/uL Lymphocytes # (1.0-4.8) k/uL Chloride 110 H (98-107) mmol/L Calcium 7.3 L (8.4-10.2) mg/dL Assessment and Plan Plan: Acute blood loss anemia from likely UGIB with , duodenal ulcer disease per EGD -Protonix IV, carafate -Continue to monitor CBC -GI consulted, input appreciated -IV fluids -Antiemetics -Monitor H&H , 7.1 today Chronic conditions: COPD, hyperlipidemia, hypertension -Hold antihypertensives until stable -Continue with remaining home meds. DVT prophylaxis -SCDs - remains in icu
[2019-03-02 12:27] LABS: Anisocytosis Slight; HCT 24.2 % (39.0-53.0); HGB 7.3 gm/dL (13.0-17.5); Hypochromasia Marked; MCH 25.3 pg (25.0-35.0); MCHC 30.2 g/dL (31.0-37.0); MCV 83.7 fL (80.0-100.0); Mean Platelet Volume 9.2; Microcytosis Slight; Platelet Count 184 k/uL (150-450); Poikilocytosis Marked; RDW 18.6 % (11.5-15.5); WBC 2.1 k/uL (3.8-10.6)
--- NOTE | 2019-03-02 17:05 | PN ---
PROGRESS NOTE DATE OF DICTATION: 03/02/2019: Patient is an 83-year-old pleasant white male admitted to the hospital with acute GI bleed. He had an upper endoscopy done yesterday that showed a 3 cm clean-based large duodenal bulbar ulcer with no active bleeding. He had an upper endoscopy about 10 days ago which revealed similar findings. The patient was re-admitted to the hospital with black tarry stools, hemoglobin 6.5, requiring a unit of blood transfusion. At present his hemoglobin is stable at 7.3 g/dL. No further episodes of black tarry stools. The epigastric pain has improved. PHYSICAL EXAMINATION: He appears comfortable. No apparent distress. Blood pressure 123/73, pulse rate 79, temperature 97.6. HEENT examination unremarkable. Conjunctivae pink. Sclerae anicteric. Oral cavity no lesions. NECK: No JVD or lymph node enlargement. CHEST: Clear to auscultation. HEART: Regular rate and rhythm. ABDOMEN: Soft. Bowel sounds are positive. Very minimal tenderness in the right upper quadrant area. EXTREMITIES: No pedal edema. SKIN: No rashes. NEUROLOGIC: Alert and oriented x3. No focal deficits. LABS: WBC 2.1, hemoglobin 7.3, platelets 184. Basic metabolic panel is within normal limits. IMPRESSION: 1. Acute gastrointestinal bleed, status post esophagogastroduodenoscopy yesterday that showed a 3 cm duodenal bulbar ulcer with no active bleeding. 2. Gastroesophageal reflux disease. 3. Anemia secondary to gastrointestinal bleed. Hemoglobin is stable at 7.3 g/dL. RECOMMENDATIONS: 1. Continue with IV Protonix 40 mg q.12 hours. 2. Advance to full liquid diet. 3. Repeat CBC in the morning. 4. Will follow with you closely. Thank you for this consultation. MMODL / IJN: [id number] /
[2019-03-03 05:36] LABS: Anisocytosis Slight; Basophils % (A) 0 %; Eosinophils # (A) 0.1 k/uL (0-0.7); Eosinophils % (A) 4 %; HCT 23.2 % (39.0-53.0); HGB 7.2 gm/dL (13.0-17.5); Hypochromasia Marked; Lymphocytes # (A) 0.6 k/uL (1.0-4.8); Lymphocytes % (A) 22 %; MCH 25.2 pg (25.0-35.0); MCHC 30.8 g/dL (31.0-37.0); MCV 81.9 fL (80.0-100.0); Mean Platelet Volume 8.1; Microcytosis Slight; Monocytes # (A) 0.3 k/uL (0-1.0); Monocytes % (A) 10 %; Neutrophils # (A) 1.5 k/uL (1.3-7.7); Neutrophils % (A) 61 %; Platelet Count 182 k/uL (150-450); Poikilocytosis Marked; RBC 2.84 m/uL (4.30-5.90); RDW 18.5 % (11.5-15.5); WBC 2.5 k/uL (3.8-10.6)
[2019-03-03 05:45] LABS: ALT 12 U/L (4-49); AST 18 U/L (17-59); African American GFR (CKD) >90 (>60 ml/min/1.73 sqM); Albumin 2.1 g/dL (3.5-5.0); Alkaline Phosphatase 52 U/L (38-126); Anion Gap 2 mmol/L; Blood Urea Nitrogen 10 mg/dL (9-20); Calcium 7.4 mg/dL (8.4-10.2); Carbon Dioxide 24 mmol/L (22-30); Chloride 110 mmol/L (98-107); Glucose 85 mg/dL (74-99); Magnesium 1.7 mg/dL (1.6-2.3); Non-African American GFR(CKD) 80 (>60 ml/min/1.73 sqM); Potassium 3.6 mmol/L (3.5-5.1); Sodium 136 mmol/L (137-145); Total Bilirubin 0.5 mg/dL (0.2-1.3); Total Protein 4.2 g/dL (6.3-8.2)
[2019-03-03] MEDS ORDERED: METOPROLOL TARTRATE 12.5 MG TAB PO SCH (09:00)
[2019-03-03] MEDS: SODIUM CHLORIDE 0.9% 1,000 ML IV SCH ×2 (09:55→19:59)
[2019-03-03] MEDS: PANTOPRAZOLE 40 MG/10 ML VIAL IV SCH (09:55)
[2019-03-03] MEDS: SUCRALFATE 1 GM TAB PO SCH ×3 (09:55→16:15)
[2019-03-03] MEDS: MORPHINE SULFATE 2 MG/ML SYRINGE IVP PRN ×2 (16:14→21:18)
--- NOTE | 2019-03-03 16:23 | P.PN ---
Subjective Progress Note Date: 03/03/19 Principal diagnosis: GI bleeding When patient woke up this morning he was a little confused. He wasn't oriented. Did well throughout the day. He has been significantly weak according to nursing staff. No abdominal pain, no nausea or vomiting. Objective - Vital Signs Vital signs: Vital Signs Temp 98.4 F 03/03/19 08:00 Pulse 98 03/03/19 08:00 Resp 14 03/03/19 08:00 BP 109/63 03/03/19 08:00 Pulse Ox 96 03/03/19 08:00 Intake & Output 03/02/19 03/03/19 03/03/19 18:59 06:59 18:59 Intake Total 1880 800 800 Output Total 650 1375 300 Balance 1230 -575 500 Intake: IV 800 800 800 Sodium Chloride 0.9% 1, 800 800 800 000 ml @ 100 mls/hr IV . Q10H [facility] Rx#:[id number] Intake, IV Titration 200 Amount Magnesium Sulfate-D5w Pmx 200 1 gm In Dextrose/Water 1 100ml.bag @ 100 mls/hr IVPB Q1H [facility] Rx#: [id number] Oral 880 Output: Urine 650 1375 300 Other: Voiding Method Urinal Urinal Urinal # Voids 1 1 # Bowel Movements 1 - Exam Constitutional: No acute distress, conversant, pleasant Eyes:Anicteric sclerae, moist conjunctiva, no lid-lag, PERRLA, ENMT: Oropharynx clear, no erythema, exudates Neck: Supple, FROM, no masses, or JVD, No carotid bruits, No thyromegaly Lungs: Clear to auscultation, Clear to percussion, Normal respiratory effort, no accessory muscle use Cardiovascular: Heart regular in rate and rhythm, No murmurs, gallops, or rubs, No peripheral edema Abdominal: Soft, Nontender, no guarding, rebound or rigidity, Normoactive bowel sounds, No hepatomegaly, No splenomegaly, No palpable mass Skin: Normal temperature, tone, texture, turgor, no induration, No subcutaneous nodules, No rash, lesions, No ulcers Extremities: No digital cyanosis, No clubbing, Pedal pulses intact and symmetrical, Radial pulses intact and symmetrical, No calf tenderness Psychiatric: Alert and oriented to person, place and time, appropriate affect, intact judgement Neuro: Muscles Strength 5/5 in all 4 extremities, Sensation to light touch grossly present throughout, Cranial nerves II-XII grossly intact, no focal sensory deficits - Labs CBC & Chem 7: 03/03/19 04:53 03/03/19 04:53 Labs: Abnormal Lab Results - Last 24 Hours (Table) 03/03/19 03/03/19 Range/Units 04:53 04:53 WBC 2.5 L (3.8-10.6) k/uL RBC 2.84 L (4.30-5.90) m/uL Hgb 7.2 L (13.0-17.5) gm/dL Hct 23.2 L (39.0-53.0) % MCHC 30.8 L (31.0-37.0) g/dL RDW 18.5 H (11.5-15.5) % Lymphocytes # 0.6 L (1.0-4.8) k/uL Sodium 136 L (137-145) mmol/L Chloride 110 H (98-107) mmol/L Calcium 7.4 L (8.4-10.2) mg/dL Total Protein 4.2 L (6.3-8.2) g/dL Albumin 2.1 L (3.5-5.0) g/dL Assessment and Plan Plan: Acute blood loss anemia from likely UGIB, recently found to have duodenal ulcer per EGD -Protonix--switch to po -Continue to monitor CBC -EGD showed non bleeding duodenal ulcer -Antiemetics -Check iron profile. Start iron replacement and multivitamins with folate. General weakness PT Chronic conditions: COPD, hyperlipidemia, hypertension -Hold antihypertensives in setting of borderline BP and active bleeding. Resume as warranted -Continue with remaining home meds. DVT prophylaxis -IPCDs CODE STATUS: Full code Discussed with: Patient Anticipated discharge date: 1-[address]: Home A total of 35 minutes was spent on the care of this complex patient more than 50% of the time was spent in counseling and care coordination.
[2019-03-03] MEDS: FERROUS SULFATE 325 MG TAB PO SCH (17:37)
[2019-03-03] MEDS: PANTOPRAZOLE 40 MG TABLET PO SCH (17:37)
[2019-03-03] MEDS: FOLIC ACID-VIT B COMPLEX-VIT C 1 CAP PO SCH (17:38)
--- NOTE | 2019-03-03 19:35 | P.PN ---
Subjective Progress Note Date: 03/03/19 Principal diagnosis: Anemia due to blood loss, upper GI bleed, duodenal ulcer Patient seen lying in bed. Tolerating diet. No bowel movements today. No signs of GI bleeding. Objective - Vital Signs Vital signs: Vital Signs Temp 98.4 F 03/03/19 08:00 Pulse 98 03/03/19 08:00 Resp 14 03/03/19 08:00 BP 109/63 03/03/19 08:00 Pulse Ox 96 03/03/19 08:00 Intake & Output 03/02/19 03/03/19 03/03/19 18:59 06:59 18:59 Intake Total 1880 800 800 Output Total 650 1375 300 Balance 1230 -575 500 Intake: IV 800 800 800 Sodium Chloride 0.9% 1, 800 800 800 000 ml @ 100 mls/hr IV . Q10H [facility] Rx#:[id number] Intake, IV Titration 200 Amount Magnesium Sulfate-D5w Pmx 200 1 gm In Dextrose/Water 1 100ml.bag @ 100 mls/hr IVPB Q1H [facility] Rx#: [id number] Oral 880 Output: Urine 650 1375 300 Other: Voiding Method Urinal Urinal Urinal # Voids 1 1 # Bowel Movements 1 - Exam On physical examination, patient appears comfortable in no apparent distress. HEAD: Normocephalic, atraumatic. EYES: No scleral icterus. No conjunctival injection. MOUTH: No lesions, tongue midline. NECK: Trachea midline, no gross abnormalities. CHEST: Clear to auscultation with no wheezing or rhonchi appreciated. ABDOMEN: Soft. Bowel sounds are positive. No organomegaly. No guarding or rigidity. EXTREMITIES: No pedal edema. SKIN: No rashes, no jaundice. NEUROLOGIC: Alert and oriented x3. No focal deficits. - Labs CBC & Chem 7: 03/03/19 04:53 03/03/19 04:53 Labs: Abnormal Lab Results - Last 24 Hours (Table) 03/03/19 03/03/19 Range/Units 04:53 04:53 WBC 2.5 L (3.8-10.6) k/uL RBC 2.84 L (4.30-5.90) m/uL Hgb 7.2 L (13.0-17.5) gm/dL Hct 23.2 L (39.0-53.0) % MCHC 30.8 L (31.0-37.0) g/dL RDW 18.5 H (11.5-15.5) % Lymphocytes # 0.6 L (1.0-4.8) k/uL Sodium 136 L (137-145) mmol/L Chloride 110 H (98-107) mmol/L Calcium 7.4 L (8.4-10.2) mg/dL Total Protein 4.2 L (6.3-8.2) g/dL Albumin 2.1 L (3.5-5.0) g/dL Assessment and Plan (1) GI bleed Narrative/Plan: 83-year-old male with recent hospitalization for bleeding duodenal ulcer presented back to the hospital secondary to symptomatic anemia with repeat EGD again significant for a large cratered nonbleeding duodenal ulcer. Currently patient denying any further signs or symptoms of GI bleeding remains stable at 7.2 today from 7.3. Current Visit: Yes Status: Acute Code(s): K92.2 - GASTROINTESTINAL HEMORRHAGE, UNSPECIFIED SNOMED Code(s): 35583560 (2) Anemia associated with acute blood loss Current Visit: No Status: Acute Code(s): D62 - ACUTE POSTHEMORRHAGIC ANEMIA SNOMED Code(s): 136340644 Plan: Supportive care Okay for diet Continue Protonix 40 mg twice daily Continue to monitor hemoglobin and hematocrit Continue to avoid NSAID therapy No plans for further endoscopic evaluation Okay for discharge when otherwise medically stable Thank you for allowing us to participate in the care of this patient
[2019-03-03] MEDS: METOPROLOL TARTRATE 25 MG TAB PO SCH (21:17)
[2019-03-04] MEDS: MORPHINE SULFATE 2 MG/ML SYRINGE IVP PRN ×2 (03:42→14:59)
[2019-03-04] MEDS: SODIUM CHLORIDE 0.9% 1,000 ML IV SCH ×2 (04:37→15:46)
[2019-03-04 05:04] LABS: Anisocytosis Slight; Basophils % (A) 0 %; Eosinophils # (A) 0.1 k/uL (0-0.7); Eosinophils % (A) 4 %; HCT 22.5 % (39.0-53.0); Hypochromasia Marked; Lymphocytes # (A) 0.6 k/uL (1.0-4.8); Lymphocytes % (A) 25 %; MCH 25.2 pg (25.0-35.0); MCHC 30.9 g/dL (31.0-37.0); MCV 81.5 fL (80.0-100.0); Mean Platelet Volume 8.1; Microcytosis Slight; Monocytes # (A) 0.3 k/uL (0-1.0); Monocytes % (A) 11 %; Neutrophils # (A) 1.3 k/uL (1.3-7.7); Neutrophils % (A) 56 %; Platelet Count 163 k/uL (150-450); Poikilocytosis Marked; RBC 2.76 m/uL (4.30-5.90); RDW 19.3 % (11.5-15.5); WBC 2.4 k/uL (3.8-10.6)
[2019-03-04 05:19] LABS: African American GFR (CKD) >90 (>60 ml/min/1.73 sqM); Anion Gap 1 mmol/L; Blood Urea Nitrogen 8 mg/dL (9-20); Calcium 7.4 mg/dL (8.4-10.2); Carbon Dioxide 27 mmol/L (22-30); Chloride 108 mmol/L (98-107); Glucose 84 mg/dL (74-99); Non-African American GFR(CKD) 81 (>60 ml/min/1.73 sqM); Potassium 3.8 mmol/L (3.5-5.1); Sodium 136 mmol/L (137-145)
[2019-03-04 06:11] LABS: HGB 6.9 gm/dL (13.0-17.5)
[2019-03-04] MEDS: PANTOPRAZOLE 40 MG TABLET PO SCH ×2 (06:55→17:36)
[2019-03-04] MEDS: FERROUS SULFATE 325 MG TAB PO SCH ×3 (06:55→17:36)
[2019-03-04] MEDS: SUCRALFATE 1 GM TAB PO SCH ×3 (06:55→17:36)
[2019-03-04] MEDS: FOLIC ACID-VIT B COMPLEX-VIT C 1 CAP PO SCH (08:08)
[2019-03-04] MEDS: METOPROLOL TARTRATE 25 MG TAB PO SCH ×2 (08:08→22:10)
--- NOTE | 2019-03-04 10:55 | P.PN ---
Subjective Progress Note Date: 03/04/19 Principal diagnosis: GI bleeding Patient still feeling generally weak. No black stools or blood in the stools. No nausea or vomiting. Objective - Vital Signs Vital signs: Vital Signs Temp 97.9 F 03/04/19 04:00 Pulse 83 03/04/19 08:00 Resp 12 03/04/19 08:00 BP 121/79 03/04/19 08:00 Pulse Ox 96 03/04/19 08:00 Intake & Output 03/03/19 03/04/19 03/04/19 18:59 06:59 18:59 Intake Total 800 800 350 Output Total 500 625 Balance 300 175 350 Intake: IV 800 800 Sodium Chloride 0.9% 1, 800 800 000 ml @ 100 mls/hr IV . Q10H [facility] Rx#:[id number] Oral 350 Output: Urine 500 625 Other: Voiding Method Urinal Urinal # Voids 1 - Exam Constitutional: No acute distress, conversant, pleasant Eyes:Anicteric sclerae, moist conjunctiva, no lid-lag, PERRLA, ENMT: Oropharynx clear, no erythema, exudates Neck: Supple, FROM, no masses, or JVD, No carotid bruits, No thyromegaly Lungs: Clear to auscultation, Clear to percussion, Normal respiratory effort, no accessory muscle use Cardiovascular: Heart regular in rate and rhythm, No murmurs, gallops, or rubs, No peripheral edema Abdominal: Soft, Nontender, no guarding, rebound or rigidity, Normoactive bowel sounds, No hepatomegaly, No splenomegaly, No palpable mass Skin: Normal temperature, tone, texture, turgor, no induration, No subcutaneous nodules, No rash, lesions, No ulcers Extremities: No digital cyanosis, No clubbing, Pedal pulses intact and symmetrical, Radial pulses intact and symmetrical, No calf tenderness Psychiatric: Alert and oriented to person, place and time, appropriate affect, intact judgement Neuro: Muscles Strength 5/5 in all 4 extremities, Sensation to light touch grossly present throughout, Cranial nerves II-XII grossly intact, no focal sensory deficits - Labs CBC & Chem 7: 03/04/19 04:25 03/04/19 04:23 Labs: Abnormal Lab Results - Last 24 Hours (Table) 03/04/19 03/04/19 Range/Units 04:23 04:25 WBC 2.4 L (3.8-10.6) k/uL RBC 2.76 L (4.30-5.90) m/uL Hgb 6.9 L* (13.0-17.5) gm/dL Hct 22.5 L (39.0-53.0) % MCHC 30.9 L (31.0-37.0) g/dL RDW 19.3 H (11.5-15.5) % Lymphocytes # 0.6 L (1.0-4.8) k/uL Sodium 136 L (137-145) mmol/L Chloride 108 H (98-107) mmol/L BUN 8 L (9-20) mg/dL Calcium 7.4 L (8.4-10.2) mg/dL Assessment and Plan Plan: Acute blood loss anemia from likely UGIB, recently found to have duodenal ulcer per EGD -Protonix -Hemoglobin down today, was transfused 2 units of packed red blood cells -EGD showed non bleeding duodenal ulcer--discuss with GI today, no need to repeat EGD, GI stated that this also will take several weeks to heal. -Antiemetics -Check iron profile. Started iron replacement and multivitamins with folate. General weakness PT Chronic conditions: COPD, hyperlipidemia, hypertension -Hold antihypertensives in setting of borderline BP and active bleeding. Resume as warranted -Continue with remaining home meds. DVT prophylaxis -IPCDs CODE STATUS: Full code Discussed with: Patient Anticipated discharge date: 1-[address]: Home versus rehab A total of 35 minutes was spent on the care of this complex patient more than 50% of the time was spent in counseling and care coordination.
--- NOTE | 2019-03-04 17:25 | P.PN ---
Subjective Progress Note Date: 03/04/19 Principal diagnosis: Anemia due to blood loss, upper GI bleed, duodenal ulcer Patient seen lying in bed. Tolerating diet. No bowel movements today or signs of GI bleeding. Objective - Vital Signs Vital signs: Vital Signs Temp 97.9 F 03/04/19 04:00 Pulse 83 03/04/19 08:00 Resp 12 03/04/19 08:00 BP 121/79 03/04/19 08:00 Pulse Ox 96 03/04/19 08:00 Intake & Output 03/03/19 03/04/19 03/04/19 18:59 06:59 18:59 Intake Total 800 800 350 Output Total 500 625 Balance 300 175 350 Intake: IV 800 800 Sodium Chloride 0.9% 1, 800 800 000 ml @ 100 mls/hr IV . Q10H [facility] Rx#:[id number] Oral 350 Output: Urine 500 625 Other: Voiding Method Urinal Urinal # Voids 1 - Exam On physical examination, patient appears comfortable in no apparent distress. HEAD: Normocephalic, atraumatic. EYES: No scleral icterus. No conjunctival injection. MOUTH: No lesions, tongue midline. NECK: Trachea midline, no gross abnormalities. CHEST: Clear to auscultation with no wheezing or rhonchi appreciated. ABDOMEN: Soft. Bowel sounds are positive. No organomegaly. No guarding or rigidity. EXTREMITIES: No pedal edema. SKIN: No rashes, no jaundice. NEUROLOGIC: Alert and oriented x3. No focal deficits. - Labs CBC & Chem 7: 03/04/19 04:25 03/04/19 04:23 Labs: Abnormal Lab Results - Last 24 Hours (Table) 03/04/19 03/04/19 Range/Units 04:23 04:25 WBC 2.4 L (3.8-10.6) k/uL RBC 2.76 L (4.30-5.90) m/uL Hgb 6.9 L* (13.0-17.5) gm/dL Hct 22.5 L (39.0-53.0) % MCHC 30.9 L (31.0-37.0) g/dL RDW 19.3 H (11.5-15.5) % Lymphocytes # 0.6 L (1.0-4.8) k/uL Sodium 136 L (137-145) mmol/L Chloride 108 H (98-107) mmol/L BUN 8 L (9-20) mg/dL Calcium 7.4 L (8.4-10.2) mg/dL Assessment and Plan (1) GI bleed Narrative/Plan: 83-year-old male with recent hospitalization for bleeding duodenal ulcer presented back to the hospital secondary to symptomatic anemia with repeat EGD again significant for a large cratered nonbleeding duodenal ulcer. Currently patient denying any further signs or symptoms of GI bleeding remains stable at 6.9, from 7.2 yesterday with the patient's scheduled to receive transfusion. Current Visit: Yes Status: Acute Code(s): K92.2 - GASTROINTESTINAL HEMORRHAGE, UNSPECIFIED SNOMED Code(s): 73223998 (2) Anemia associated with acute blood loss Current Visit: No Status: Acute Code(s): D62 - ACUTE POSTHEMORRHAGIC ANEMIA SNOMED Code(s): 000609578 Plan: Supportive care Okay for diet Continue Protonix 40 mg twice daily Continue to monitor hemoglobin and hematocrit Continue to avoid NSAID therapy No plans for further endoscopic evaluation Okay for discharge when otherwise medically stable Thank you for allowing us to participate in the care of this patient
[2019-03-05] MEDS: SODIUM CHLORIDE 0.9% 1,000 ML IV SCH (03:07)
[2019-03-05 05:28] LABS: Anisocytosis Slight; Basophils % (A) 0 %; Eosinophils # (A) 0.1 k/uL (0-0.7); Eosinophils % (A) 3 %; HCT 29.8 % (39.0-53.0); Hypochromasia Marked; Lymphocytes # (A) 0.6 k/uL (1.0-4.8); Lymphocytes % (A) 21 %; MCH 27.3 pg (25.0-35.0); MCHC 32.3 g/dL (31.0-37.0); MCV 84.6 fL (80.0-100.0); Monocytes # (A) 0.3 k/uL (0-1.0); Monocytes % (A) 11 %; Neutrophils # (A) 1.8 k/uL (1.3-7.7); Neutrophils % (A) 63 %; Platelet Count 190 k/uL (150-450); Poikilocytosis Marked; RBC 3.53 m/uL (4.30-5.90); RDW 17.9 % (11.5-15.5); WBC 2.9 k/uL (3.8-10.6)
[2019-03-05 05:33] LABS: HGB 9.6 gm/dL (13.0-17.5)
[2019-03-05 06:08] LABS: African American GFR (CKD) >90 (>60 ml/min/1.73 sqM); Anion Gap 4 mmol/L; Blood Urea Nitrogen 8 mg/dL (9-20); Calcium 7.7 mg/dL (8.4-10.2); Carbon Dioxide 24 mmol/L (22-30); Chloride 108 mmol/L (98-107); Glucose 78 mg/dL (74-99); Non-African American GFR(CKD) 83 (>60 ml/min/1.73 sqM); Potassium 3.7 mmol/L (3.5-5.1); Sodium 136 mmol/L (137-145)
[2019-03-05] MEDS: FERROUS SULFATE 325 MG TAB PO SCH (07:02)
[2019-03-05] MEDS: PANTOPRAZOLE 40 MG TABLET PO SCH (07:02)
[2019-03-05] MEDS: SUCRALFATE 1 GM TAB PO SCH (07:02)
[2019-03-05] MEDS: FOLIC ACID-VIT B COMPLEX-VIT C 1 CAP PO SCH (09:51)
[2019-03-05] MEDS: METOPROLOL TARTRATE 25 MG TAB PO SCH (09:52)
[2019-03-05] MEDS ORDERED: DOCUSATE 100 MG CAP PO STA (10:36)
--- NOTE | 2019-03-05 10:59 | P.DS ---
Providers Date of admission: 02/28/19 20:30 Expected date of discharge: 03/05/19 Attending physician: Kahlil Ortiz MD Consults: 02/28/19 20:30 Consult Physician Urgent Consulting Provider: Angelica Pimentel Consult Reason/Comments: gi bleed, hx duodenal ulcer Do you want consulting provider notified?: Yes Primary care physician: Toro [facility] Course: 83-year-old male with PMH of COPD, hypertension, dyslipidemia, recent upper GI bleed with large duodenal ulcer presented to the ED for abdominal pain, nausea and melena. Patient was discharged recently from the hospital on February 24 after presenting with similar complaints, underwent EGD which showed large cratered duodenal ulcer and esophagitis of the distal esophagus. When he went home, patient initially felt well but then subsequently developed epigastric abdominal pain and melanotic stools along with nausea. FOBT was positive with hemoglobin of 7.6. Patient was admitted for subsequent monitoring. His h emoglobin trended down to 6.9. He was transfused 3 units of PRBC. His repeat hemoglobin was 9.6 at discharge. Patient was started on Protonix by mouth and given Zofran as needed for nausea or vomiting. Was also given normal saline at 100 mL/h. He was given sucralfate 3 times a day. GI was consulted and recommended conservative management, no repeat EGD and discharge when medically stable. Patient was seen and examined. No acute events overnight. Patient reports resolution of his abdominal pain. No nausea or vomiting. Tolerating diet well. No bowel movement in the last 2 days, requesting stool softener. Last bowel movement was 2 days ago and was normal. He denies any chest pain, shortness of breath or palpitations. No fever or chills. General: [non toxic], [no distress], [appears at stated age] Derm: [warm], [dry] Head: [atraumatic], [normocephalic], [symmetric] Eyes: [EOMI], [no lid lag], [anicteric sclera] Mouth: [no lip lesion], [mucus membranes moist] Cardiovascular: [S1S2 reg], [no murmur], [positive DP pulse bilateral] Lungs: [CTA bilateral], [no rhonchi, no rales] , [no accessory muscle use] Abdominal: [soft], [ nontender to palpation], [no guarding], [no appreciable organomegaly] Ext: [no gross muscle atrophy], [no edema], [no contractures] Neuro: [no focal neuro deficits] Psych: [Alert], [oriented], [appropriate affect] Acute blood loss anemia from upper GI bleed COPD Hypertension Hemoglobin 9.6 post 3 PRBCs. GI evaluated patient, recommends discharge when medically stable, no repeat EGD. Plans: Continue Protonix. Continue ferrous sulfate. Zofran as needed for nausea or vomiting. Continue normal saline at 100 mL/h. Follow iron studies. Stable. BP 117/66. Plans: Continue metoprolol. Monitor vitals, adjust medications as necessary. [PT recommends possible DC home if medically progresses. Stool softener this morning. DC home if normal bowel movement and hemodynamically stable into this afternoon.] Patient Condition at Discharge: Stable Plan - Discharge Summary New Discharge Prescriptions: New Sucralfate [Carafate] 1 gm PO AC-TID #90 tab Docusate [Colace] 100 mg PO DAILY #30 capsule Ferrous Sulfate [Iron (65 MG Elemental)] 325 mg PO TID-W/MEALS #90 tab Continue Acetaminophen Tab [Tylenol] 650 mg PO Q4HR PRN tab PRN Reason: Fever And/Or Mild Pain amLODIPine [Norvasc] 5 mg PO HS Lisinopril [Zestril] 10 mg PO DAILY Metoprolol Tartrate [Lopressor] 12.5 mg PO BID Calcium Carbonate [Tums] 500 mg PO ONCE PRN PRN Reason: Heartburn Pantoprazole [Protonix] 40 mg PO AC-BID #60 tablet.dr Discontinued Sucralfate [Carafate] 1 gm PO AC-TID #90 tab Discharge Medication List Acetaminophen Tab [Tylenol] 650 mg PO Q4HR PRN tab 02/24/19 [Rx] Calcium Carbonate [Tums] 500 mg PO ONCE PRN 02/28/19 [History] Lisinopril [Zestril] 10 mg PO DAILY 02/28/19 [History] Metoprolol Tartrate [Lopressor] 12.5 mg PO BID 02/28/19 [History] amLODIPine [Norvasc] 5 mg PO HS 02/28/19 [History] Docusate [Colace] 100 mg PO DAILY #30 capsule 03/05/19 [Rx] Ferrous Sulfate [Iron (65 MG Elemental)] 325 mg PO TID-W/MEALS #90 tab 03/05/19 [Rx] Pantoprazole [Protonix] 40 mg PO AC-BID #60 tablet. 03/05/19 [Rx] Sucralfate [Carafate] 1 gm PO AC-TID #90 tab 03/05/19 [Rx] Follow up Appointment(s)/Referral(s): Toro Mason MD [Primary Care Provider] - 1-2 days Alvin Callaway MD [STAFF PHYSICIAN] - 1 Week Ambulatory/Diagnostic Orders: Complete Blood Count w/diff [LAB.AMB] Time Frame: 3 Days, Location: None Selected Activity/Diet/Wound Care/Special Instructions: Diet: Low-salt Follow-up PCP within 3 days of discharge. Follow-up gastroenterology within 1 week of discharge. Take all medications as advised. Come back to the ED for dizziness, chest pain, shortness of breath or palpitations. Please come back to the ED or call 911 for worsening epigastric pain, bright red blood per rectum, black tarry stools. Discharge Disposition: HOME SELF-CARE
[2019-03-05 11:43] LABS: % Iron Saturation 4.63 (15.00-50.00); Ferritin 18.8 ng/mL (22.0-322.0)
[2019-03-05 16:33] VITALS: BP 131/67; PULSE 75; RESP 16; TEMP 98.3
== END 2019-03-05 16:26 | disposition home or self-care (01) | DRG 378 ==
LOC: EC 17:49 → 2SICU 20:30
PROVIDERS: ADMIT Internal Medicine; ATTEND Internal Medicine
PROC: 30233N1 Transfusion of Nonautologous Red Blood Cells into Peripheral Vein, Percutaneous Approach (ICD-10-PCS; 2019-03-01)
PROC: 0DB78ZX Excision of Stomach, Pylorus, Via Natural or Artificial Opening Endoscopic, Diagnostic (ICD-10-PCS; principal; 2019-03-01 07:45)
DX: K26.4 Chronic or unspecified duodenal ulcer with hemorrhage (principal); D62 Acute posthemorrhagic anemia; E78.5 Hyperlipidemia, unspecified; I10 Essential (primary) hypertension; I49.3 Ventricular premature depolarization; J44.9 Chronic obstructive pulmonary disease, unspecified; K29.70 Gastritis, unspecified, without bleeding; K44.9 Diaphragmatic hernia without obstruction or gangrene; M19.90 Unspecified osteoarthritis, unspecified site; K21.9 Gastro-esophageal reflux disease without esophagitis; Z79.899 Other long term (current) drug therapy; Z87.891 Personal history of nicotine dependence; Z96.653 Presence of artificial knee joint, bilateral; Z96.643 Presence of artificial hip joint, bilateral; Z88.1 Allergy status to other antibiotic agents; Z98.42 Cataract extraction status, left eye; Z96.1 Presence of intraocular lens; Z82.49 Family history of ischemic heart disease and other diseases of the circulatory system; Z82.5 Family history of asthma and other chronic lower respiratory diseases; Z80.9 Family history of malignant neoplasm, unspecified
CPT/HCPCS: 36415; 43239; 80048; 80053; 82272; 82728; 83540; 83550; 83605; 83690; 83735; 84100; 85025; 85027; 85610; 85730; 86850; 86900; 86901; 86920; 88305; 88342; 93005; 96361; 96374; 96375; 99284

== ENCOUNTER → 2020-02-04 | Outpatient (CLI) | payer MEDICARE ==
[2020-02-04 13:36] LABS: HCT 40.5 % (39.0-53.0); HGB 12.7 gm/dL (13.0-17.5); MCH 32.2 pg (25.0-35.0); MCHC 31.4 g/dL (31.0-37.0); MCV 102.7 fL (80.0-100.0); Macrocytosis Slight; Mean Platelet Volume 7.9; Platelet Count 175 k/uL (150-450); RBC 3.95 m/uL (4.30-5.90); WBC 2.9 k/uL (3.8-10.6)
[2020-02-04 14:46] LABS: Anisocytosis (M) Present; Monocytes # (M) 0.67 k/uL (0-1.0); Neutrophils # (M) 2.03 k/uL (1.3-7.7); Neutrophils % (M) 70 %; Nucleated Red Blood Cells 0 /100 WBC (0-0); Poikilocytosis (M) Present; Total Cells Counted 100
[2020-02-04 19:30] LABS: % Iron Saturation 22.42 (15.00-50.00)
[2020-02-04 19:38] LABS: Ferritin 33.5 ng/mL (22.0-322.0)
== END | disposition home or self-care (01) ==
LOC: LABWHC1 11:25
PROVIDERS: ATTEND Internal Medicine
DX: K26.9 Duodenal ulcer, unspecified as acute or chronic, without hemorrhage or perforation (principal)
CPT/HCPCS: 36415; 82728; 83540; 83550; 85025

== ENCOUNTER → 2020-03-11 | Outpatient (CLI) | payer MEDICARE ==
--- NOTE | 2020-03-11 15:33 | US ---
EXAMINATION TYPE: US kidneys/renal and bladder DATE OF EXAM: 03/11/2020 COMPARISON: US 2019 CLINICAL HISTORY: R31.0 Gross Hematuria. EXAM MEASUREMENTS: Right Kidney: 9.6 x 5.1 x 5.1 cm Left Kidney: 10.6 x 5.5 x 5.2 cm Right Kidney: no hydronephrosis, 2 small cystic areas lateral mid pole measuring 1.2cm Left Kidney: no hydronephrosis, small cystic area inferior pole measuring 1.4 x 1.3 x 1.4cm Bladder: not fully distended, wall mildly thickened, 3.5 x 1.3 x 4.1cm vascular solid appearing area seen along posterior wall Bilateral Jets seen: no IMPRESSION: 1. Subtle lesion may be along the posterior wall. This may have vascularity. Additional workup is rec ommended.
== END | disposition home or self-care (01) ==
LOC: RADUSWWP 11:51
PROVIDERS: ATTEND Urology
DX: N28.89 Other specified disorders of kidney and ureter (principal); Z88.1 Allergy status to other antibiotic agents
CPT/HCPCS: 76770

== ENCOUNTER 2021-06-23 10:54 | Emergency (ER) | payer MEDICARE ==
[2021-06-23 11:00] LABS: Glucose,Whole Blood 152 mg/dL (75-99)
[2021-06-23] MEDS ORDERED: SODIUM CHLORIDE 0.9% 1,000 ML IV ONE ×2 (11:10→11:49)
[2021-06-23 11:24] LABS: Basophils % (A) 0 %; Eosinophils % (A) 0 %; HGB 14.1 gm/dL (13.0-17.5); Hypochromasia Marked; Lymphocytes # (A) 0.5 k/uL (1.0-4.8); Lymphocytes % (A) 5 %; MCH 32.5 pg (25.0-35.0); MCV 108.6 fL (80.0-100.0); Macrocytosis Moderate; Mean Platelet Volume 8.8; Monocytes # (A) 0.7 k/uL (0-1.0); Monocytes % (A) 7 %; Neutrophils # (A) 8.3 k/uL (1.3-7.7); Neutrophils % (A) 86 %; Platelet Count 254 k/uL (150-450); RBC 4.33 m/uL (4.30-5.90); RDW 13.6 % (11.5-15.5); WBC 9.7 k/uL (3.8-10.6)
[2021-06-23 11:30] LABS: Albumin 4.1 g/dL (3.5-5.0); Calcium 9.4 mg/dL (8.4-10.2); Magnesium 3.8 mg/dL (1.6-2.3); Potassium 4.7 mmol/L (3.5-5.1); Total Bilirubin 1.4 mg/dL (0.2-1.3); Total Protein 6.9 g/dL (6.3-8.2)
[2021-06-23 11:32] LABS: INR 1.1 (<1.2); Prothrombin Time 11.8 sec (9.0-12.0)
--- NOTE | 2021-06-23 11:36 | CT ---
EXAMINATION TYPE: CT brain wo con DATE OF EXAM: 06/23/2021 COMPARISON: None available HISTORY: Unresponsive CT DLP: 2081.4 mGycm Automated exposure control for dose reduction was used. TECHNIQUE: CT scan of the brain is performed without IV contrast administration. FINDINGS: Right anterior frontal cortical and subcortical acute to subacute infarct with suspected smaller more superior subcortical white matter infarct. Focal calcification is seen within the M2 branches of the right MCA. Brain volume loss changes, likely age-related. No acute intracranial hemorrhage. No midline shift or herniation. Unremarkable basal cisterns, sella and CP angles. No gross space-occupying lesion. Unremarkable orbits. Clear visualized paranasal sinuses and mastoid air cells. No aggressive bone les ion. IMPRESSION: Findings are highly suggestive of acute to subacute right anterior frontal infarct as described above , for clinical correlation and neurology consultation. Findings were discussed with the referring physician immediately after the CT scan was performed.
--- NOTE | 2021-06-23 12:11 | XR ---
EXAMINATION TYPE: XR chest 1V portable DATE OF EXAM: 06/23/2021 COMPARISON: 02/21/2019 INDICATION: Difficulty in breathing TECHNIQUE: Single frontal view of the chest is obtained. FINDINGS: The heart size is normal. The pulmonary vasculature is normal. The lungs are clear. IMPRESSION: 1. No acute pulmonary process.
--- NOTE | 2021-06-23 12:13 | ED ---
General Adult HPI - General Chief complaint: Shortness of Breath Stated complaint: Unresponsive Time Seen by Provider: 06/23/21 10:58 Source: EMS, RN notes reviewed, old records reviewed Mode of arrival: EMS Limitations: altered mental status - History of Present Illness Initial comments: 85-year-old male presenting in extremis. Patient had been home, family and called for a well check and when paramedics arrived they believe that the patient had been . He was not moving. Dependent edema and was cyanotic. He had minimal agonal respirations and did receive support with BVM. He was transported for evaluation. CODE STATUS not known. - Related Data Home Medications Medication Instructions Recorded Confirmed Calcium Carbonate [Tums] 500 mg PO ONCE PRN 02/28/19 02/28/19 Metoprolol Tartrate [Lopressor] 12.5 mg PO BID 02/28/19 02/28/19 amLODIPine [Norvasc] 5 mg PO HS 02/28/19 02/28/19 lisinopriL [Zestril] 10 mg PO DAILY 02/28/19 02/28/19 Previous Rx's Medication Instructions Recorded Acetaminophen Tab [Tylenol] 650 mg PO Q4HR PRN tab 02/24/19 Docusate [Colace] 100 mg PO DAILY #30 capsule 03/05/19 Ferrous Sulfate [Iron (65 MG 325 mg PO TID-W/MEALS #90 tab 03/05/19 Elemental)] Pantoprazole [Protonix] 40 mg PO AC-BID #60 tablet. 03/05/19 Sucralfate [Carafate] 1 gm PO AC-TID #90 tab 03/05/19 Allergies Allergy/AdvReac Type Severity Reaction Status Date / Time cephalexin monohydrate AdvReac Nausea & Verified 02/28/19 21:11 [From Keflex] Vomiting Review of Systems ROS Statement: Those systems with pertinent positive or pertinent negative responses have been documented in the HPI. ROS Other: All systems not noted in ROS Statement are negative. Past Medical History Past Medical History: COPD, GERD/Reflux, GI Bleed, Hyperlipidemia, Hypertension, Osteoarthritis (OA), Skin Disorder Additional Past Medical History / Comment(s): HX: eczema History of Any Multi-Drug Resistant Organisms: None Reported Past Surgical History: Heart Catheterization, Joint Replacement Additional Past Surgical History / Comment(s): SX: souleymane knee and souleymane hip replacements, rt carpal tunnel, left rotator cuff, left cataract Past Anesthesia/Blood Transfusion Reactions: No Reported Reaction Past Psychological History: No Psychological Hx Reported Smoking Status: Former smoker Past Alcohol Use History: Daily Past Drug Use History: None Reported - Past Family History Mother Family Medical History: No Reported History Additional Family Medical History / Comment(s): " of old age" Father Family Medical History: COPD, Hypertension Additional Family Medical History / Comment(s): "had some problems" Sister(s) Family Medical History: Cancer General Exam Limitations: altered mental status General appearance: obtunded, in distress Head exam: Present: atraumatic, normocephalic Eye exam: Present: normal appearance, PERRL ENT exam: Present: mucous membranes dry Neck exam: Present: normal inspection Respiratory exam: Present: respiratory distress, rhonchi, other Cardiovascular Exam: Present: normal rhythm, bradycardia GI/Abdominal exam: Present: soft. Absent: distended, tenderness, guarding Rectal exam: Present: other (Dependent edema, skin breakdown) Neurological exam: Present: other (Patient will withdraw to pain on the right, he is not moving the left side of his body.) Skin exam: Present: dry. Absent: warm Course Vital Signs 06/23/21 06/23/21 06/23/21 10:56 11:34 11:59 Temperature 86.7 F L 86.2 F L Pulse Rate 59 L 54 L 55 L Respiratory 24 18 16 Rate Blood Pressure 64/35 75/35 84/46 O2 Sat by Pulse 93 L 91 L 97 Oximetry 06/23/21 12:17 Temperature Pulse Rate 52 L Respiratory 16 Rate Blood Pressure 93/67 O2 Sat by Pulse 100 Oximetry - Reevaluation(s) Reevaluation #1: 06/23/21 12:56 I did have a lengthy discussion with the patient's daughter 8 who is out of state regarding the patient's presentation and that his goals of care as well as prognosis. At this time we will keep the patient comfortable, DO NOT RESUSCITATE, pain medication and IV fluids. No intubation, no aggressive measures. EKG Findings - EKG Comments: EKG Findings:: EKG: Sinus rhythm with arrhythmia, rate of 51, prolonged QTC, QRS duration 108. Medical Decision Making - Medical Decision Making 85-year-old male presenting in extremis, agonal respirations, hypotensive and bradycardic. Nonresponsive to verbal stimuli. Hemiplegic on the left. Workup is initiated as well as attempts to contact family made immediately. The patient does have CT evidence of large right hemispheric stroke. He has a acute renal failure profound lactic acidosis. He has dependent edema and skin breakdown in the sacrum suggesting a prolonged period of downtime as well as a significantly elevated creatinine kinase. Patient's initially treated with IV fluids, antibiotics, steroids, respiratory support with nonrebreather. Ultimately discussions with family, resolved in a decision to keep the patient comfortable. He will be admitted with consult the hospitalist. Case discussed with the admitting physician. - Lab Data Result diagrams: 06/23/21 11:13 06/23/21 11:13 Lab Results 06/23/21 06/23/21 06/23/21 Range/Units 10:59 11:13 11:13 WBC 9.7 (3.8-10.6) k/uL RBC 4.33 (4.30-5.90) m/uL Hgb 14.1 (13.0-17.5) gm/dL Hct 47.0 (39.0-53.0) % MCV 108.6 H (80.0-100.0) fL MCH 32.5 (25.0-35.0) pg MCHC 30.0 L (31.0-37.0) g/dL RDW 13.6 (11.5-15.5) % Plt Count 254 (150-450) k/uL MPV 8.8 Neutrophils % 86 % Lymphocytes % 5 % Monocytes % 7 % Eosinophils % 0 % Basophils % 0 % Neutrophils # 8.3 H (1.3-7.7) k/uL Lymphocytes # 0.5 L (1.0-4.8) k/uL Monocytes # 0.7 (0-1.0) k/uL Eosinophils # 0.0 (0-0.7) k/uL Basophils # 0.0 (0-0.2) k/uL Hypochromasia Marked Macrocytosis Moderate PT 11.8 (9.0-12.0) sec INR 1.1 (<1.2) APTT 22.0 (22.0-30.0) sec Sodium (137-145) mmol/L Potassium (3.5-5.1) mmol/L Chloride (98-107) mmol/L Carbon Dioxide (22-30) mmol/L Anion Gap mmol/L BUN (9-20) mg/dL Creatinine (0.66-1.25) mg/dL Est GFR (CKD-EPI)AfAm (>60 ml/min/1.73 sqM) Est GFR (CKD-EPI)NonAf (>60 ml/min/1.73 sqM) Glucose (74-99) mg/dL POC Glucose (mg/dL) 152 H (75-99) mg/dL POC Glu Ed Case Manager ID Abbi Robles Plasma Lactic Acid Mani (0.7-2.0) mmol/L Calcium (8.4-10.2) mg/dL Magnesium (1.6-2.3) mg/dL Total Bilirubin (0.2-1.3) mg/dL AST (17-59) U/L ALT (4-49) U/L Alkaline Phosphatase (38-126) U/L Creatine Kinase (55-170) U/L Troponin I (0.000-0.034) ng/mL NT-Pro-B Natriuret Pep pg/mL Total Protein (6.3-8.2) g/dL Albumin (3.5-5.0) g/dL 06/23/21 06/23/21 06/23/21 Range/Units 11:13 11:13 11:13 WBC (3.8-10.6) k/uL RBC (4.30-5.90) m/uL Hgb (13.0-17.5) gm/dL Hct (39.0-53.0) % MCV (80.0-100.0) fL MCH (25.0-35.0) pg MCHC (31.0-37.0) g/dL RDW (11.5-15.5) % Plt Count (150-450) k/uL MPV Neutrophils % % Lymphocytes % % Monocytes % % Eosinophils % % Basophils % % Neutrophils # (1.3-7.7) k/uL Lymphocytes # (1.0-4.8) k/uL Monocytes # (0-1.0) k/uL Eosinophils # (0-0.7) k/uL Basophils # (0-0.2) k/uL Hypochromasia Macrocytosis PT (9.0-12.0) sec INR (<1.2) APTT (22.0-30.0) sec Sodium 147 H (137-145) mmol/L Potassium 4.7 (3.5-5.1) mmol/L Chloride 108 H (98-107) mmol/L Carbon Dioxide 18 L (22-30) mmol/L Anion Gap 21 mmol/L BUN 115 H* (9-20) mg/dL Creatinine 4.42 H (0.66-1.25) mg/dL Est GFR (CKD-EPI)AfAm 13 (>60 ml/min/1.73 sqM) Est GFR (CKD-EPI)NonAf 11 (>60 ml/min/1.73 sqM) Glucose 172 H (74-99) mg/dL POC Glucose (mg/dL) (75-99) mg/dL POC Glu Ed Case Manager ID Plasma Lactic Acid Mani 6.0 H* (0.7-2.0) mmol/L Calcium 9.4 (8.4-10.2) mg/dL Magnesium 3.8 H (1.6-2.3) mg/dL Total Bilirubin 1.4 H (0.2-1.3) mg/dL AST 167 H (17-59) U/L ALT 77 H (4-49) U/L Alkaline Phosphatase 80 (38-126) U/L Creatine Kinase (55-170) U/L Troponin I 0.081 H* (0.000-0.034) ng/mL NT-Pro-B Natriuret Pep pg/mL Total Protein 6.9 (6.3-8.2) g/dL Albumin 4.1 (3.5-5.0) g/dL 06/23/21 06/23/21 Range/Units 11:13 11:13 WBC (3.8-10.6) k/uL RBC (4.30-5.90) m/uL Hgb (13.0-17.5) gm/dL Hct (39.0-53.0) % MCV (80.0-100.0) fL MCH (25.0-35.0) pg MCHC (31.0-37.0) g/dL RDW (11.5-15.5) % Plt Count (150-450) k/uL MPV Neutrophils % % Lymphocytes % % Monocytes % % Eosinophils % % Basophils % % Neutrophils # (1.3-7.7) k/uL Lymphocytes # (1.0-4.8) k/uL Monocytes # (0-1.0) k/uL Eosinophils # (0-0.7) k/uL Basophils # (0-0.2) k/uL Hypochromasia Macrocytosis PT (9.0-12.0) sec INR (<1.2) APTT (22.0-30.0) sec Sodium (137-145) mmol/L Potassium (3.5-5.1) mmol/L Chloride (98-107) mmol/L Carbon Dioxide (22-30) mmol/L Anion Gap mmol/L BUN (9-20) mg/dL Creatinine (0.66-1.25) mg/dL Est GFR (CKD-EPI)AfAm (>60 ml/min/1.73 sqM) Est GFR (CKD-EPI)NonAf (>60 ml/min/1.73 sqM) Glucose (74-99) mg/dL POC Glucose (mg/dL) (75-99) mg/dL POC Glu Ed Case Manager ID Plasma Lactic Acid Mani (0.7-2.0) mmol/L Calcium (8.4-10.2) mg/dL Magnesium (1.6-2.3) mg/dL Total Bilirubin (0.2-1.3) mg/dL AST (17-59) U/L ALT (4-49) U/L Alkaline Phosphatase (38-126) U/L Creatine Kinase 5038 H* (55-170) U/L Troponin I (0.000-0.034) ng/mL NT-Pro-B Natriuret Pep 1070 pg/mL Total Protein (6.3-8.2) g/dL Albumin (3.5-5.0) g/dL Critical Care Time Critical Care Time: Yes Total Critical Care Time: 35 Disposition Clinical Impression: 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
[2021-06-23] MEDS ORDERED: methylPREDNISolone SOD SUCCI 125 MG/2 ML VIAL IV STA (12:19)
[2021-06-23] MEDS ORDERED: PIPERACILLIN-TAZOBACTAM 3.375 GM in SODIUM CHLORIDE 0.9% 100 ML IVPB STA (12:24)
[2021-06-23] MEDS ORDERED: MORPHINE SULFATE 4 MG/ML SYRINGE IVP STA ×2 (12:24→14:17)
[2021-06-23] MEDS ORDERED: SODIUM CHLORIDE 0.9% 1,000 ML IV SCH (12:30)
[2021-06-23] MEDS ORDERED: ONDANSETRON 4 MG/2 ML VIAL IVP PRN (12:53)
[2021-06-23] MEDS ORDERED: MORPHINE SULFATE 2 MG/ML SYRINGE IV PRN (12:53)
[2021-06-23] MEDS ORDERED: METOCLOPRAMIDE 5 MG/ML 2 ML VIAL IVP PRN (12:53)
[2021-06-23 15:07] VITALS: RESP 10
[2021-06-23 15:28] VITALS: BP 57/28; PULSE 55; TEMP 89.2
== END 2021-06-23 17:45 | disposition expired ==
LOC: EC 10:54 → UNDOADMIN 12:55 → 4SSUR 12:55 → UNDODISIN 17:45 → EC 17:45
DX: I63.521 Cerebral infarction due to unspecified occlusion or stenosis of right anterior cerebral artery (principal); N17.9 Acute kidney failure, unspecified; E87.2 Acidosis; I69.351 Hemiplegia and hemiparesis following cerebral infarction affecting right dominant side; I46.9 Cardiac arrest, cause unspecified; J44.9 Chronic obstructive pulmonary disease, unspecified; I10 Essential (primary) hypertension; I95.9 Hypotension, unspecified; R00.1 Bradycardia, unspecified; K21.9 Gastro-esophageal reflux disease without esophagitis; Z79.899 Other long term (current) drug therapy; Z88.8 Allergy status to other drugs, medicaments and biological substances; Z51.5 Encounter for palliative care
CPT/HCPCS: 99291; 96365; 96375; 36415; 93005; 83880; 80053; 82550; 83605; 83735; 84484; 85025; 85610; 85730; 87040; 71045; 70450; J2543; J2270; J2930; J2405